=== PATIENT | male | born 1965 | race Caucasian/White ===

== ENCOUNTER 2024-10-06 12:39 | Observation (INO) ==
[2024-10-06 13:56] LABS: Albumin Globulin Ratio 1.2 (0.9-2); Albumin Level 3.9 gm/dl (3.4-5.0); BUN Creatinine Ratio 15.9 (10-20); Bilirubin,Total 0.4 mg/dl (0.2-1.0); Calcium 8.5 mg/dl (8.6-10.3); Globulin 3.2 gm/dl (2.5-4.0); Potassium 3.6 mmol/L (3.5-5.1); Total Protein 7.1 gm/dl (6.0-8.3)
[2024-10-06 14:02] LABS: Troponin I High Sensitivity 5.8 pg/ml (0-20)
[2024-10-06 14:05] LABS: Partial Thromboplastin Ratio 1.2; Partial Thromboplastin Time 33 Seconds (21-31); Prothrombin Time 10.7 Seconds (9.0-12.0)
--- NOTE | 2024-10-06 14:07 | XRay Report ---
XR chest 1V not portable CLINICAL HISTORY: Chest pain, nonspecific COMPARISON STUDY: None FINDINGS: Heart size and pulmonary vasculature are normal. No effusion, consolidation, or pneumothora x. IMPRESSION: No acute findings. ACT 112: Negative or not required by law. Electronically signed by: Freddie Petersen M.D. 10/06/2024 2:06 PM
[2024-10-06 14:15] LABS: Mean Platelet Volume 9.4 fL (9.4-12.4); Platelet Count 176 K/uL (130-400); White Blood Count 9.41 K/ul (4.8-10.8)
--- NOTE | 2024-10-06 14:27 | Electrocardiogram Report ---
Test Reason : Blood Pressure : */* mmHG Vent. Rate : 85 BPM Atrial Rate : 85 BPM P-R Int : 156 ms QRS Dur : 90 ms QT Int : 368 ms P-R-T Axes : 49 -51 34 degrees QTcB Int : 437 ms Normal sinus rhythm Left anterior fascicular block Diffuse Minor Nonspecific T wave abnormality Abnormal ECG When compared with ECG of 06-Apr-2023 12:45, No significant change was found Confirmed by Mikey Mena ([id number]) on 10/06/2024 2:27:23 PM Referred By: Confirmed By: Mikey Mena
[2024-10-06 14:35] LABS: Basophils # (auto) 0.01 K/uL (0.00-0.20); Basophils % (auto) 0.1 %; Immature Granulocytes # (auto) 0.04 K/uL (0.01-0.20); Immature Granulocytes % (auto) 0.4 %; Lymphocytes # (auto) 1.37 K/uL (1.20-3.40); Lymphocytes % (auto) 14.6 %; Monocytes # (auto) 0.71 K/uL (0.11-0.59); Monocytes % (auto) 7.5 %; Neutrophils # (auto) 7.28 K/uL (1.40-6.50); Neutrophils % (auto) 77.4 %
[2024-10-06 14:39] LABS: Hematocrit (blood only) 36.5 % (42.0-52.0); Mean Corpuscular Hemoglobin 34.1 pg (25.0-34.0); Mean Corpuscular Hgb Conc 38.4 g/dL (32.0-36.0); RDW Coefficient of Variation 12.7 % (11.5-14.5); RDW Standard Deviation 40.7 fL (36.4-46.3); Toxic Vacuolation 2+
[2024-10-06] MEDS: ALBUT/IPRATROP 3MG/0.5MG NEB 3 ML VIAL NEB STA ×2 (14:56→17:16)
[2024-10-06] MEDS: OPTIRAY 320 125ml IV ONE (15:31)
--- NOTE | 2024-10-06 15:54 | CT Scan Report ---
CT cervical spine wo con CT DOSE: 1974.12 mGy.cm CLINICAL HISTORY: 58 years-old Male with fall. Acute neck injury status post fall COMPARISON: Head CT of same day, chest CT 04/15/2023 TECHNIQUE: Multiple axial CT images of the cervic al spine were obtained without contrast. A dose lowering technique was utilized adhering to the prin ciples of MELINA. FINDINGS: Mild multilevel intervertebral disc space narrowing, spondylitic spurring and facet arthros is. No acute fracture, subluxation or suspicious bone lesion. The cervical soft tissues appear unrema rkable. No pneumothorax. Subpleural groundglass densities within the left lung apex favor atelectasi s versus scarring. Right mastoid effusion. IMPRESSION: No acute cervical spine fracture or subluxation. ACT 112: Negative or not required by law. The above report was generated using voice recognition software. It may contain grammatical, syntax o r spelling errors. Electronically signed by: Ozzie Andrew M.D. 10/06/2024 3:53 PM
--- NOTE | 2024-10-06 15:54 | CT Scan Report ---
CT angio chest PE protocol HISTORY: ro PE. TECHNIQUE: Multiple CTA images of the chest were obtained after the intravenous administration of 115 ml Optiray. Coronal and sagittal MIPS were obtained from the axial data set and were submitted for review. All measurements were obtained according to NASCET criteria. A dose lowering technique was u tilized adhering to the principles of ALARA. COMPARISON STUDY: 04/15/2023 FINDINGS: There is interval mild patchy groundglass opacity at the anterior upper lobes and at the po sterior left lung base consistent with early pneumonia. No lobar consolidation, pleural effusion, or pneumothorax. No enlarged adenopathy. No pericardial effusion. No thoracic aortic dissection or aneur ysm. There is mild noncalcified plaque at the aortic arch. No pulmonary embolism. No acute osseous fi ndings. IMPRESSION: 1. No pulmonary embolism seen. 2. Early pneumonia. ACT 112: Negative or not required by law. The above report was generated using voice recognition software. It may contain grammatical, syntax o r spelling errors. Electronically signed by: Freddie Petersen M.D. 10/06/2024 3:52 PM
--- NOTE | 2024-10-06 15:54 | CT Scan Report ---
CT OF THE HEAD WITHOUT CONTRAST CLINICAL HISTORY: Headache. Syncope. COMPARISON STUDY: No previous studies for comparison. TECHNIQUE: Helical axial images of the head were obtained without IV contrast. Automated exposure con trol was utilized for the study. A dose lowering technique was utilized adhering to the principles o f ALARA. FINDINGS: No acute intracranial hemorrhage, midline shift or mass effect is present. The ventricular system is unremarkable. The basal cisterns are patent. No extra-axial collections are present. There are no findings to suggest acute dural sinus thrombosis or acute territorial infarct. There are no ca lvarial fractures. There are small bilateral mastoid effusions. IMPRESSION: 1. No acute intracranial findings. 2. No calvarial fractures. 3. Small bilateral mastoid effusions. ACT 112: Negative or not required by law. Electronically signed by: Jc Strong M.D. 10/06/2024 3:52 PM
[2024-10-06] MEDS: cefTRIAXone SODIUM 2,000 MG/50 ML BAG IV STA (17:08)
[2024-10-06] MEDS: AZITHROMYCIN 250 MG TAB PO ONE (17:08)
[2024-10-06] MEDS: methylPREDNISolone 125 MG/2 ML VIAL IV STA (17:08)
--- NOTE | 2024-10-06 17:33 | History & Physical Report ---
Date of Service October 06, 2024 Assessment & Plan (1) Bilateral pneumonia: Plan: Acute - Observation to med/tele - VS per unit protocol - Regular diet - Monitor spO2, apply O2 if <90% - Treat for CAP as most recent CD4 count >200, repeat pending - Continue azithromycin 500mg daily and ceftriaxone 2g IV q24 - Duonebs QIDR and q2 prn dyspnea/wheezing - Continue methylprednisolone 40mg IV TID - Mucinex 600mg BID - Sputum culture and gram stain ordered (2) Syncopal episodes: Plan: Acute, 2 episodes on 10/05 - Obtain TTE and set of orthostatic vital signs - Carotid duplex bilaterally - Continuous cardiac monitoring - May benefit from holter on d/c (3) Depression with anxiety: Plan: Chronic - Continue venlafaxine, seroquel, and lamictal - pt does note that he "took himself off" of the venlafaxine which may account for his tremulousness - continue gabapentin (4) HIV (human immunodeficiency virus infection): Plan: Chronic, undetectable x 14 yrs - Continue Biktarvy - Repeat CD4 count pending (5) COPD exacerbation: Plan VTE ppx with lovenox 40mg sq daily to start tomorrow AM. Above plan of care has been d/w Dr. oFx who will also see and evaluate this patient. Further orders will be implemented as clinically warranted by attending. History of Present Illness Chief Complaint: Syncope Primary Care Provider: [facility] Norman Enrique is a 58 yo M with a pmhx of COPD, HIV w/ most recent CD4 count of 222, HLD, hepatitis B, HLD, PE, depression, methamphetamine use disorder, and anxiety and panic disorder who presents to the ER today following syncopal event x 2 that occurred at home yesterday. His first event occurred when he was outside sitting on his swing. He denies any recent use of substances, including methamphetamine since Apr 2024. He states that he stood up to walk into the house when he passed out. He does endorse feeling lightheaded before going down. He had a second episode while standing inside that was witnessed by his significant other with whom he lives. He reports that this occurred about 4 years ago but never had it investigated. His partner denies any visible jerking or shaking. He has no prior h/o seizures. He also endorses increased dyspnea, cough and congestion since Wednesday. He denies fever but reports chills. He had one episode of chest pain on Wednesday of last week while vaping, and no further episodes since that time. In the ER, his work up is notable for a CTA chest with early pna in the left lung base and anterior of both upper lobes. He is afebrile and not hypoxic. His HS trop was 5.8. He has a normal wbc count w/o shift. His Na is 129. He was medicated in the ER with a dose of Zithromax and Rocephin. He also received a dose of methylprednisolone 125mg IV x1 and two duonebs. He has been referred for admission to hospital medicine team. Allergies Allergy/AdvReac Type Severity Reaction Status Date / Time No Known Drug Allergies Allergy Verified 10/06/24 17:36 Home Medications Medication Instructions Recorded Confirmed Type venlafaxine 150 mg 150 mg PO BID 3 weeks #42 caps 01/01/23 10/06/24 Rx capsule,extended release 24 hr bictegravir 50 mg-emtricitabine 1 tab PO QAM 03/30/23 10/06/24 History 200 mg-tenofovir alafenam 25 mg tablet (Biktarvy) gabapentin 800 mg tablet 800 mg PO TID #270 tabs 09/25/24 10/06/24 Rx lamotrigine 100 mg tablet 100 mg PO QAM 10/06/24 10/06/24 History meloxicam 15 mg tablet 15 mg PO QAM 10/06/24 10/06/24 History quetiapine 300 mg tablet 300 mg PO HS 10/06/24 10/06/24 History Past Med/Surg History Problem List (Updated 10/06/24 @ 21:57 by Zachariah Fox MD) COPD exacerbation Syncopal episodes Bilateral pneumonia Low testosterone History of colon polyps Nocturnal enuresis Erectile dysfunction Umbilical hernia Panic disorder Depression with anxiety Hepatitis B Cigarette nicotine dependence Cannabis abuse, daily use medical marijuana daily 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 Left knee pain History of pulmonary embolism Approximately 2009 (r/t IV drug use) Joint pain COPD (chronic obstructive pulmonary disease) does not use inhaler Hyperlipidemia HIV (human immunodeficiency virus infection) "undetectable for 14 years" Medical History (Updated 10/06/24 @ 21:57 by Zachariah oFx MD) History of drug use sober since 10/2022 for all drugs except IV drugs; last use of IV drugs 2021 Arthritis Medical cannabis use "all day every day" Hepatitis B Depression with anxiety Panic disorder History of DVT (deep vein thrombosis) Approximately 2009 Surgical History (Updated 12/17/23 @ 12:55 by Natacha Deng PA-C) H/O umbilical hernia repair (04/08/23) Open Umbilical Hernia Repair(Not Applicable) - [facility] Edwards, History of colonoscopy H/O tooth extraction all teeth removed Family History Other No family history of adverse response to anesthesia Denies family history of Ovarian cancer Prostate cancer Myocardial infarction Breast cancer Colorectal cancer Social History Smoking Status: Never smoker Tobacco Type: Cigarettes Age Started Using Tobacco: 16; packs per day: 0.5; Cigarettes Per Day: 20; Second Hand Exposure: No; Do You Dip or Chew Tobacco: Yes (hx-quit 30 years ago; advised); Hx Alcohol Use: Yes (quit 2017) Hx Substance Use: Yes (still uses medical marijuana "all day every day") Prescribed Medications: Marijuana Last Used Substance: Unknown Last Used Substance Other:: sober since 10/2022; IV drugs-2021 Substance Use Type Other:: currently uses medical marijuana daily Preferred Language: Malay Communication Ability: Effective Visual Impairment: Limited Hearing Ability: Normal Salt Operator Required: No Beliefs That Will Affect Care: None marital status: Current Living Situation: Spouse Current Living Situation Comment: lives with GF current occupational status: disabled Feels Safe at Home: Yes Childhood Exposure to Second-Hand Smoke: Yes Diet: regular Diet Comment: regular caffeine: Yes (coffeee) during the past year weight has: remained stable Dental Care, Regularly: Yes Physical Activity Frequency: Daily Seatbelt Use: always Sunscreen Use: Yes Gender Identity: Male Assistive Devices: Denture - Upper, Denture - Lower and Glasses Review of Systems 2 Review of Systems: All systems reviewed and are unremarkable except as noted in HPI and below. Denies fever, fatigue, headache, nasal congestion, sore throat, palpitations, orthopnea, PND, abdominal pain, n/v/d, constipation, dysuria, hematuria, frequency, back pain, joint pain or swelling, easy bruising or bleeding, skin lesions or rashes. Physical Exam 2 Physical Exam: GENERAL: 58 yo middle aged wm who appears older than stated age. Thin. No distress. EYES: EOMI. PERRLA. Anicteric. HENT: Moist mucous membranes. No cervical lymphadenopathy. LUNGS: Nonlabored, no accessory muscle use. Rhonchi and moderate expiratory wheezes appreciated b/l. CARDIOVASCULAR: Regular rate and rhythm. No M/G/R. No JVD. ABDOMEN: Soft, non-tender and non-distended. Bowel sounds normoactive x 4 quad. EXTREMITIES: No edema. Non-tender. Peripheral pulses +2/4. NEUROLOGIC: A&O x3. Tremulous. No focal neurological deficits. CN II-XII grossly intact. PSYCHIATRIC: Cooperative. Appropriate mood and affect. SKIN: Warm, dry, intact. No rashes or lesions. Results & Data Results & Data Vital Signs (Past 12 Hours) Vital Signs Temp Pulse Pulse Resp BP BP Pulse Ox 10/06/24 14:36 99 10/06/24 14:34 71 20 119/79 99 10/06/24 14:34 99 10/06/24 12:52 36.7 C 91 H 19 123/69 96 O2 Del Method 10/06/24 14:36 Room Air 10/06/24 14:34 Room Air 10/06/24 14:34 Room Air 10/06/24 12:52 Room Air Laboratory Results 10/06/24 13:10 10/06/24 13:10 Diagnostic Findings Chest X-Ray 10/06/24 12:58 XR chest 1V not portable CLINICAL HISTORY: Chest pain, nonspecific COMPARISON STUDY: None FINDINGS: Heart size and pulmonary vasculature are normal. No effusion, consolidation, or pneumothorax. IMPRESSION: No acute findings. ACT 112: Negative or not required by law. Electronically signed by: Freddie Petersen M.D. 10/06/2024 2:06 PM Chest CTA 10/06/24 14:52 CT angio chest PE protocol HISTORY: ro PE. TECHNIQUE: Multiple CTA images of the chest were obtained after the intravenous administration of 115 ml Optiray. Coronal and sagittal MIPS were obtained from the axial data set and were submitted for review. All measurements were obtained according to NASCET criteria. A dose lowering technique was utilized adhering to the principles of ALARA. COMPARISON STUDY: 04/15/2023 FINDINGS: There is interval mild patchy groundglass opacity at the anterior upper lobes and at the posterior left lung base consistent with early pneumonia. No lobar consolidation, pleural effusion, or pneumothorax. No enlarged adenopathy. No pericardial effusion. No thoracic aortic dissection or aneurysm. There is mild noncalcified plaque at the aortic arch. No pulmonary embolism. No acute osseous findings. IMPRESSION: 1. No pulmonary embolism seen. 2. Early pneumonia. ACT 112: Negative or not required by law. The above report was generated using voice recognition software. It may contain grammatical, syntax or spelling errors. Electronically signed by: Freddie Petersen M.D. 10/06/2024 3:[address] 10/06/24 14:52 CT OF THE HEAD WITHOUT CONTRAST CLINICAL HISTORY: Headache. Syncope. COMPARISON STUDY: No previous studies for comparison. TECHNIQUE: Helical axial images of the head were obtained without IV contrast. Automated exposure control was utilized for the study. A dose lowering technique was utilized adhering to the principles of ALARA. FINDINGS: No acute intracranial hemorrhage, midline shift or mass effect is present. The ventricular system is unremarkable. The basal cisterns are patent. No extra-axial collections are present. There are no findings to suggest acute dural sinus thrombosis or acute territorial infarct. There are no calvarial fractures. There are small bilateral mastoid effusions. IMPRESSION: 1. No acute intracranial findings. 2. No calvarial fractures. 3. Small bilateral mastoid effusions. ACT 112: Negative or not required by law. Electronically signed by: Jc Strong M.D. 10/06/2024 3:[address] 10/06/24 14:54 CT cervical spine wo con CT DOSE: 1974.12 mGy.cm CLINICAL HISTORY: 58 years-old Male with fall. Acute neck injury status post fall COMPARISON: Head CT of same day, chest CT 04/15/2023 TECHNIQUE: Multiple axial CT images of the cervical spine were obtained without contrast. A dose lowering technique was utilized adhering to the principles of ALARA. FINDINGS: Mild multilevel intervertebral disc space narrowing, spondylitic spurring and facet arthrosis. No acute fracture, subluxation or suspicious bone lesion. The cervical soft tissues appear unremarkable. No pneumothorax. Subpleural groundglass densities within the left lung apex favor atelectasis versus scarring. Right mastoid effusion. IMPRESSION: No acute cervical spine fracture or subluxation. ACT 112: Negative or not required by law. The above report was generated using voice recognition software. It may contain grammatical, syntax or spelling errors. Electronically signed by: Ozzie Andrew M.D. 10/06/2024 3:53 PM ECG Additional Comments: EKG = NSR Code Status & VTE Plan Code Status Full code - d/w pt and significant other Supervising Physician Co-Signing Physician Notes I personally saw and examined the patient. I independently reviewed the labs, EKG, imaging, problem list, medication list, past medical history and family history. I verified all garsia points and agree with Clotilde Saini PA-C with the following exceptions and/or additions: 58 year old male presents to the ER following a syncopal event. Shortness of breath worse over the last week. O/E HS RRR, no murmurs, Chest rhonchi bilaterally, no wheezing, Abdo SNT, no pedal edema A/P Pneumonia - Presuming CD4 count > 200 as historically this has been the case therefore will cover for usual CAP with ceftriaxone and azithromycin COPD exacerbation - wheezing noted on initial PA and ER provider exam although currently just rhonchi on my exam and no significant improvement with nebulizers. Will reduce Solu-Medrol to 40mg IV daily but suspect this can be rapidly discontinued if he remains non-wheezy Syncope - Suspect secondary to pneumonia, TTE appears reasonable PG Care Time/CCT Total # of Minutes Spent Total Time Spent with Patient: Total time spent is greater than 50% in coordination of care (as documented) at patient's floor/unit and/or counseling patient: 76 minutes Coding Level of Care Code 25198 INT INP/OBS CARE 3/75MIN Diagnoses Pneumonia of both lungs due to infectious organism, unspecified part of lung J18.9 Lung location: unspecified part of lung Pneumonia type: due to unspecified organism Syncope, unspecified syncope type R55 Syncope type: unspecified Depression with anxiety F41.8 HIV (human immunodeficiency virus infection) B20 COPD exacerbation J44.1 (1) Bilateral pneumonia Lung location: unspecified part of lung Pneumonia type: due to unspecified organism Qualified Code(s): J18.9 - Pneumonia, unspecified organism (2) Syncopal episodes Syncope type: unspecified Qualified Code(s): R55 - Syncope and collapse
[2024-10-06 18:35] LABS: Adenovirus PCR Not Detected (NotDetected); Bordetella parapertussis PCR Not Detected (NotDetected); Bordetella pertussis PCR Not Detected (NotDetected); Chlamydia pneumoniae PCR Not Detected (NotDetected); Coronavirus 229E PCR Not Detected (NotDetected); Coronavirus CoV-2 (COVID19)PCR Not Detected (NotDetected); Coronavirus HKU1 PCR Not Detected (NotDetected); Coronavirus NL63 PCR Not Detected (NotDetected); Coronavirus OC43PCR Not Detected (NotDetected); Human Metapneumovirus PCR Not Detected (NotDetected); Influenza A PCR Not Detected (NotDetected); Influenza B PCR Not Detected (NotDetected); Mycoplasma pneumoniae PCR Not Detected (NotDetected); Parainfluenza Virus 1 PCR Not Detected (NotDetected); Parainfluenza Virus 2 PCR Not Detected (NotDetected); Parainfluenza Virus 3 PCR Not Detected (NotDetected); Parainfluenza Virus 4 PCR Not Detected (NotDetected); Respiratory Syncytial VirusPCR Not Detected (NotDetected); Rhinovirus/Enterovirus PCR Not Detected (NotDetected)
[2024-10-06] MEDS ORDERED: MAGNESIUM HYDROXIDE SUSP 30 ML UDC PO PRN (18:53)
[2024-10-06] MEDS ORDERED: ONDANSETRON INJ 2 MG/ML 2 ML VIAL IV PRN (18:53)
[2024-10-06] MEDS ORDERED: ALUMINUM/MAGNESIUM SUSP 30 ML UDC PO PRN (18:53)
[2024-10-06] MEDS: ACETAMINOPHEN 325 MG TAB PO PRN (19:55)
[2024-10-06] MEDS: ALBUT/IPRATROP 3MG/0.5MG NEB 3 ML VIAL NEB SCH (20:04)
[2024-10-06] MEDS: LORazepam 1 MG TAB PO STA (20:16)
[2024-10-06] MEDS: guaiFENesin 600 MG TABCR PO SCH (20:19)
[2024-10-06] MEDS: VENLAFAXINE HCL XR 150 MG CAPXR PO SCH (20:19)
[2024-10-06] MEDS: GABAPENTIN 800 MG TAB PO SCH (20:19)
[2024-10-06] MEDS: QUEtiapine FUMARATE 300 MG TABLET PO SCH (20:19)
--- NOTE | 2024-10-06 22:17 | Emergency Department Note ---
History of Present Illness General Chief complaint: Syncope Stated complaint: BLACKING OUT, TIGHT CHEST, MUSCLE PAIN Time Seen by Provider: 10/06/24 14:40 History of Present Illness Provider complaint: Syncope Maximum Pain Intensity: 8 58-year-old male with history of COPD who actively smokes, HIV, presents emergency department for syncope. Patient states earlier today he had a syncopal episode. He states he is not sure how but passed out earlier today. He states he has been having chest pain for the last week. Reports some shortness of breath. He reports wheezing. Reports chronic cough. No hemoptysis. Patient is not on any blood thinners. Patient states he has taken his Biktarvy but he states he is not sure what his CD4 count or his viral load are as he has not gone to his doctor recently. Home Medications Medication Instructions Recorded Confirmed Type venlafaxine 150 mg 150 mg PO BID 3 weeks #42 caps 01/01/23 10/06/24 Rx capsule,extended release 24 hr bictegravir 50 mg-emtricitabine 1 tab PO QAM 03/30/23 10/06/24 History 200 mg-tenofovir alafenam 25 mg tablet (Biktarvy) gabapentin 800 mg tablet 800 mg PO TID #270 tabs 09/25/24 10/06/24 Rx lamotrigine 100 mg tablet 100 mg PO QAM 10/06/24 10/06/24 History meloxicam 15 mg tablet 15 mg PO QAM 10/06/24 10/06/24 History quetiapine 300 mg tablet 300 mg PO HS 10/06/24 10/06/24 History Allergies Allergy/AdvReac Type Severity Reaction Status Date / Time No Known Drug Allergies Allergy Verified 10/06/24 17:36 Past Med/Surg History Problem List (Updated 10/06/24 @ 22:30 by Yang Gonzales MD) Syncope (Acute) Pneumonia (Acute) COPD exacerbation Syncopal episodes Bilateral pneumonia Low testosterone History of colon polyps Nocturnal enuresis Erectile dysfunction Umbilical hernia Panic disorder Depression with anxiety Hepatitis B Cigarette nicotine dependence Cannabis abuse, daily use medical marijuana daily 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 Left knee pain History of pulmonary embolism Approximately 2009 (r/t IV drug use) Joint pain COPD (chronic obstructive pulmonary disease) does not use inhaler Hyperlipidemia HIV (human immunodeficiency virus infection) (Acute) "undetectable for 14 years" Medical History History of drug use sober since 10/2022 for all drugs except IV drugs; last use of IV drugs 2021 Arthritis Medical cannabis use "all day every day" Hepatitis B Depression with anxiety Panic disorder History of DVT (deep vein thrombosis) Approximately 2009 Surgical History H/O umbilical hernia repair (04/08/23) Open Umbilical Hernia Repair(Not Applicable) - José Manuel Edwards DO History of colonoscopy H/O tooth extraction all teeth removed Family History Other No family history of adverse response to anesthesia Denies family history of Ovarian cancer Prostate cancer Myocardial infarction Breast cancer Colorectal cancer Social History Smoking Status: Never smoker Tobacco Type: Cigarettes Age Started Using Tobacco: 16; packs per day: 0.5; Cigarettes Per Day: 20; Second Hand Exposure: No; Do You Dip or Chew Tobacco: Yes (hx-quit 30 years ago; advised); Hx Alcohol Use: Yes (quit 2017) Hx Substance Use: Yes (still uses medical marijuana "all day every day") Prescribed Medications: Marijuana Last Used Substance: Unknown Last Used Substance Other:: sober since 10/2022; IV drugs-2021 Substance Use Type Other:: currently uses medical marijuana daily Preferred Language: Palauan Communication Ability: Effective Visual Impairment: Limited Hearing Ability: Normal Jacquard Loom Weaver Required: No Beliefs That Will Affect Care: None marital status: Current Living Situation: Spouse Current Living Situation Comment: lives with GF current occupational status: disabled Feels Safe at Home: Yes Childhood Exposure to Second-Hand Smoke: Yes Diet: regular Diet Comment: regular caffeine: Yes (coffeee) during the past year weight has: remained stable Dental Care, Regularly: Yes Physical Activity Frequency: Daily Seatbelt Use: always Sunscreen Use: Yes Gender Identity: Male Assistive Devices: Denture - Upper, Denture - Lower and Glasses Physical Exam Vital Signs Vital Signs - 24 hr 10/06/24 12:52 10/06/24 14:34 10/06/24 14:34 Temperature 36.7 C Temperature Source Temporal Artery Scan Pulse Rate 91 H Pulse Rate [Apical] 71 Pulse Rhythm [Apical] Pulse Strength [Apical] Respiratory Rate 19 20 Respiratory Effort / Characteristics Non-Labored Spontaneous Non-Labored Spontaneous Respiratory Depth Normal Normal Respiratory Pattern Regular Regular Blood Pressure 123/69 Blood Pressure [Left Arm] 119/79 Blood Pressure Mean 87 Blood Pressure Mean [Left Arm] 92 Blood Pressure Position [Left Arm] Pulse Oximetry 96 99 99 Oxygen Delivery Method Room Air Room Air Room Air Sepsis Recent Fever Within 48 Hours No Sepsis New/Unexplained Change in Mental Status No Sepsis Action Taken by Nursing No Action Required 10/06/24 14:36 10/06/24 16:00 Temperature Temperature Source Pulse Rate Pulse Rate [Apical] 78 Pulse Rhythm [Apical] Regular Pulse Strength [Apical] Normal Respiratory Rate 25 H Respiratory Effort / Characteristics Non-Labored Respiratory Depth Normal Respiratory Pattern Regular Blood Pressure Blood Pressure [Left Arm] 119/79 Blood Pressure Mean Blood Pressure Mean [Left Arm] 92 Blood Pressure Position [Left Arm] Lying Pulse Oximetry 99 100 Oxygen Delivery Method Room Air Room Air Sepsis Recent Fever Within 48 Hours Sepsis New/Unexplained Change in Mental Status Sepsis Action Taken by Nursing Physical Exam GENERAL: He is oriented to person, place, and time. He appears well-developed and well-nourished. He does not appear distressed. HENT: Exam performed. - Head: Normocephalic and atraumatic. - Right Ear: External ear normal. No mastoid erythema - Left Ear: External ear normal. No mastoid erythema - Mouth/Throat: The oropharynx is clear and moist. No trismus in the jaw. No dental abscesses or uvula swelling. No oropharyngeal exudate or tonsillar abscesses. EYES: Conjunctivae and EOM are normal. Pupils are equal, round, and reactive to light. Right eye exhibits no discharge. Left eye exhibits no discharge. No scleral icterus. NECK: Normal range of motion. Neck supple. No JVD present. CV: Normal rate, regular rhythm, normal heart sounds and intact distal pulses. There is no peripheral edema. Palpable radial pulses bue. PULM/CHEST: Wheezes bilaterally. ABD: The abdomen is soft.He has no distension. No mass is present. There is no tenderness. There is no rebound, no guarding, no Danielson's sign and no tenderness at McBurney's point. Rovsig negative. MUSC/SKEL: Normal range of motion. There is no peripheral edema, tenderness or deformity. LYMPH: No cervical adenopathy. NEURO: He is alert and oriented to person, place, and time. He has normal strength. No cranial nerve deficit or sensory deficit. Coordination and gait normal. GCS eye subscore is 4. GCS verbal subscore is 5. GCS motor subscore is 6. Cerebellar tests wnl. SKIN: Skin is warm and dry. He is not diaphoretic. PSYCH: He has a normal mood and affect. Behavior is normal. Judgment and thought content normal. Course Course 1440: The patient was evaluated in room B3. A complete history and physical exam was performed Cardiac monitoring: An order was placed for continuous cardiac monitoring. The monitor shows a rate of 80 with sinus rhythm interpreted by va 1645: Vital signs stable. Patient still wheezing. Patient be given repeat DuoNeb treatment. Labs are unremarkable. Imaging shows possible developing pneumonia. External medical records were reviewed. According to scan lab reports from May 02, 2024 the patient's CD4 count was 222. Given this low CD4 count, will recheck the patient's CD4 count today. Unfortunately this is a send out test. Blood cultures and lactic acid will be ordered for the patient. Rocephin and azithromycin will be ordered for the patient. Since patient CD4 count is not less than 200 will hold off on Bactrim. 1710: Vital signs stable. Wheezing improved status post second DuoNeb treatment. Still wheezing though. Lactic acid within normal limits. Patient will be admitted to the [facility] team. Administered Medications Acetaminophen (Acetaminophen 325 Mg Tab) 650 mg PO Q4H PRN PRN Reason: Pain or Fever Stop: 11/05/24 18:52 Last Admin: 10/06/24 19:55 Dose: 650 mg Documented By: JASIEL Albuterol (Albut/Ipratrop 3mg/0.5mg Neb 3 Ml Vial) 3 ml NEB QIDR TREV; Protocol Stop: 11/05/24 18:59 Last Admin: 10/06/24 20:04 Dose: 3 ml Documented By: MARITA Gabapentin (Gabapentin 800 Mg Tab) 800 mg PO TID [facility] Stop: 11/05/24 20:59 Last Admin: 10/06/24 20:19 Dose: 800 mg Documented By: JASIEL Guaifenesin (Guaifenesin 600 Mg Tabcr) 600 mg PO Q12 TREV Stop: 11/05/24 20:59 Last Admin: 10/06/24 20:19 Dose: 600 mg Documented By: JASIEL Quetiapine Fumarate (Quetiapine Fumarate 300 Mg Tablet) 300 mg PO HS TREV Stop: 11/05/24 20:59 Last Admin: 10/06/24 20:19 Dose: 300 mg Documented By: JASIEL Venlafaxine HCl (Venlafaxine Hcl Xr 150 Mg Capxr) 150 mg PO BID TREV Stop: 11/05/24 20:59 Last Admin: 10/06/24 20:19 Dose: 150 mg Documented By: JASIEL Discontinued Medications Albuterol (Albut/Ipratrop 3mg/0.5mg Neb 3 Ml Vial) 3 ml NEB NOW STA; Protocol Stop: 10/06/24 14:53 Last Admin: 10/06/24 14:56 Dose: 3 ml Documented By: CHARLES Albuterol (Albut/Ipratrop 3mg/0.5mg Neb 3 Ml Vial) 3 ml NEB NOW STA; Protocol Stop: 10/06/24 16:31 Last Admin: 10/06/24 17:16 Dose: 3 ml Documented By: PACO Azithromycin (Azithromycin 250 Mg Tab) 500 mg PO NOW ONE Stop: 10/06/24 16:31 Last Admin: 10/06/24 17:08 Dose: 500 mg Documented By: PACO Ceftriaxone Sodium (Rocephin) 2,000 mg in 50 mls @ 100 mls/hr IV NOW STA Stop: 10/06/24 16:59 Last Infusion: 10/06/24 18:11 Dose: Infused Documented By: Admin: 10/06/24 17:08 Dose: 100 mls/hr Documented By: PACO Ioversol (Optiray 320 125ml) 115 ml IV ONCE ONE Stop: 10/06/24 15:32 Last Admin: 10/06/24 15:31 Dose: 115 ml Documented By: ALBERT Lorazepam (Lorazepam 1 Mg Tab) 1 mg PO NOW STA Stop: 10/06/24 19:49 Last Admin: 10/06/24 20:16 Dose: 1 mg Documented By: JASIEL Methylprednisolone (Methylprednisolone 125 Mg/2 Ml Vial) 125 mg IV NOW STA Stop: 10/06/24 16:35 Last Admin: 10/06/24 17:08 Dose: 125 mg Documented By: PACO Medical Decision Making Laboratory Data Attestation: I reviewed the patient's lab results. 10/06/24 13:10 10/06/24 13:10 Lab Results 10/06/24 10/06/24 10/06/24 Range/Units 13:10 16:43 17:18 WBC 9.41 (4.8-10.8) K/ul RBC 4.10 L (4.70-6.10) M/uL Hgb 14.0 (14.0-18.0) g/dl Hct 36.5 L (42.0-52.0) % MCV 89.0 (80.0-100.0) fL MCH 34.1 H (25.0-34.0) pg MCHC 38.4 H (32.0-36.0) g/dL RDW Std Deviation 40.7 (36.4-46.3) fL RDW Coeff of Lia 12.7 (11.5-14.5) % Plt Count 176 (130-400) K/uL MPV 9.4 (9.4-12.4) fL Immature Gran % (Auto) 0.4 % Neut % (Auto) 77.4 % Lymph % (Auto) 14.6 % Dade % (Auto) 7.5 % Eos % (Auto) 0.0 % Baso % (Auto) 0.1 % Neut # (Auto) 7.28 H (1.40-6.50) K/uL Lymph # (Auto) 1.37 (1.20-3.40) K/uL Dade # (Auto) 0.71 H (0.11-0.59) K/uL Eos # (Auto) 0.00 (0.00-0.50) K/uL Baso # (Auto) 0.01 (0.00-0.20) K/uL Immature Gran # (Auto) 0.04 (0.01-0.20) K/uL Toxic Vacuolation 2+ PT 10.7 (9.0-12.0) Seconds INR 1.0 (0.9-1.1) APTT 33 H (21-31) Seconds PTT Ratio 1.2 Sodium 129 L (136-145) mmol/L Potassium 3.6 (3.5-5.1) mmol/L Chloride 99 (98-107) mmol/L Carbon Dioxide 21 (21-32) mmol/L Anion Gap 9 (3-11) BUN 20 (6-23) mg/dl Creatinine 1.26 (0.6-1.4) mg/dl Est Cr Clr Drug Dosing 66.0 ml/min eGFR 66.11 BUN/Creatinine Ratio 15.9 (10-20) Glucose 113 H (70-99(Fasting)) mg/dl Lactate 1.7 (0.4-2.0) mmol/L Calcium 8.5 L (8.6-10.3) mg/dl Total Bilirubin 0.4 (0.2-1.0) mg/dl AST 28 (13-39) U/L ALT 36 (7-52) U/L Alkaline Phosphatase 53 (34-104) U/L Troponin I High Sens 5.8 (0-20) pg/ml Total Protein 7.1 (6.0-8.3) gm/dl Albumin 3.9 (3.4-5.0) gm/dl Globulin 3.2 (2.5-4.0) gm/dl Albumin/Globulin Ratio 1.2 (0.9-2) Adenovirus (PCR) Not Detected (NotDetected) B. pertussis DNA (PCR) Not Detected (NotDetected) B.parapertussis DNA PCR Not Detected (NotDetected) C. pneumoniae DNA (PCR) Not Detected (NotDetected) Coronavirus OC43 (PCR) Not Detected (NotDetected) Coronavirus HKU1 (PCR) Not Detected (NotDetected) Coronavirus 229E (PCR) Not Detected (NotDetected) SARS-CoV-2 (PCR) Not Detected (NotDetected) Coronavirus NL63 (PCR) Not Detected (NotDetected) Human Metapneumovir PCR Not Detected (NotDetected) Influenza Type A (PCR) Not Detected (NotDetected) Influenza Type B (PCR) Not Detected (NotDetected) M. pneumoniae (PCR) Not Detected (NotDetected) Parainfluenza 1 (PCR) Not Detected (NotDetected) Parainfluenza 2 (PCR) Not Detected (NotDetected) Parainfluenza 3 (PCR) Not Detected (NotDetected) Parainfluenza 4 (PCR) Not Detected (NotDetected) RSV (PCR) Not Detected (NotDetected) Entero/Rhino (PCR) Not Detected (NotDetected) Imaging Data Attestation: I personally reviewed and interpreted this imaging study as follows: My Impression: Chest x-ray negative. Airway clear. No pneumothorax. No consolidation. No cardiomegaly or cephalization.. No free air under the diaphragm. No fractures of the skeletal structures. Radiologist's Impression: Chest X-Ray 10/06/24 12:58 XR chest 1V not portable CLINICAL HISTORY: Chest pain, nonspecific COMPARISON STUDY: None FINDINGS: Heart size and pulmonary vasculature are normal. No effusion, consolidation, or pneumothorax. IMPRESSION: No acute findings. ACT 112: Negative or not required by law. Electronically signed by: Freddie Petersen M.D. 10/06/2024 2:06 PM Chest CTA 10/06/24 14:52 CT angio chest PE protocol HISTORY: ro PE. TECHNIQUE: Multiple CTA images of the chest were obtained after the intravenous administration of 115 ml Optiray. Coronal and sagittal MIPS were obtained from the axial data set and were submitted for review. All measurements were obtained according to NASCET criteria. A dose lowering technique was utilized adhering to the principles of ALARA. COMPARISON STUDY: 04/15/2023 FINDINGS: There is interval mild patchy groundglass opacity at the anterior upper lobes and at the posterior left lung base consistent with early pneumonia. No lobar consolidation, pleural effusion, or pneumothorax. No enlarged adenopathy. No pericardial effusion. No thoracic aortic dissection or aneurysm. There is mild noncalcified plaque at the aortic arch. No pulmonary embolism. No acute osseous findings. IMPRESSION: 1. No pulmonary embolism seen. 2. Early pneumonia. ACT 112: Negative or not required by law. The above report was generated using voice recognition software. It may contain grammatical, syntax or spelling errors. Electronically signed by: Freddie Petersen M.D. 10/06/2024 3:[address] 10/06/24 14:52 CT OF THE HEAD WITHOUT CONTRAST CLINICAL HISTORY: Headache. Syncope. COMPARISON STUDY: No previous studies for comparison. TECHNIQUE: Helical axial images of the head were obtained without IV contrast. Automated exposure control was utilized for the study. A dose lowering technique was utilized adhering to the principles of ALARA. FINDINGS: No acute intracranial hemorrhage, midline shift or mass effect is present. The ventricular system is unremarkable. The basal cisterns are patent. No extra-axial collections are present. There are no findings to suggest acute dural sinus thrombosis or acute territorial infarct. There are no calvarial fractures. There are small bilateral mastoid effusions. IMPRESSION: 1. No acute intracranial findings. 2. No calvarial fractures. 3. Small bilateral mastoid effusions. ACT 112: Negative or not required by law. Electronically signed by: Jc Strong M.D. 10/06/2024 3:[address] 10/06/24 14:54 CT cervical spine wo con CT DOSE: 1974.12 mGy.cm CLINICAL HISTORY: 58 years-old Male with fall. Acute neck injury status post fall COMPARISON: Head CT of same day, chest CT 04/15/2023 TECHNIQUE: Multiple axial CT images of the cervical spine were obtained without contrast. A dose lowering technique was utilized adhering to the principles of ALARA. FINDINGS: Mild multilevel intervertebral disc space narrowing, spondylitic spurring and facet arthrosis. No acute fracture, subluxation or suspicious bone lesion. The cervical soft tissues appear unremarkable. No pneumothorax. Subpleural groundglass densities within the left lung apex favor atelectasis versus scarring. Right mastoid effusion. IMPRESSION: No acute cervical spine fracture or subluxation. ACT 112: Negative or not required by law. The above report was generated using voice recognition software. It may contain grammatical, syntax or spelling errors. Electronically signed by: Ozzie Andrew M.D. 10/06/2024 3:53 PM ECG Data Attestation: I personally reviewed and interpreted this ECG as follows: Rate (beats per minute): 85 Rhythm: + normal sinus ECG Intervals/blocks: + Normal QRS, + Normal [place] and + Normal QT-c ECG ST segments: + Normal ST segments [facility] Narrative 1440: The patient was evaluated in room B3. A complete history and physical exam was performed Cardiac monitoring: An order was placed for continuous cardiac monitoring. The monitor shows a rate of 80 with sinus rhythm interpreted by va 1645: Vital signs stable. Patient still wheezing. Patient be given repeat DuoNeb treatment. Labs are unremarkable. Imaging shows possible developing pneumonia. External medical records were reviewed. According to scan lab reports from May 02, 2024 the patient's CD4 count was 222. Given this low CD4 count, will recheck the patient's CD4 count today. Unfortunately this is a send out test. Blood cultures and lactic acid will be ordered for the patient. Rocephin and azithromycin will be ordered for the patient. Since patient CD4 count is not less than 200 will hold off on Bactrim. 1710: Vital signs stable. Wheezing improved status post second DuoNeb treatment. Still wheezing though. Lactic acid within normal limits. Patient will be admitted to the [facility]ist team. Impression & Plan Pneumonia, HIV (human immunodeficiency virus infection), Syncope Discharge Plan Visit Data Chief Complaint: Syncope Stated Complaint: BLACKING OUT, TIGHT CHEST, MUSCLE PAIN ED Provider: Yang Gonzales Discharge Problem: Pneumonia, HIV (human immunodeficiency virus infection), Syncope Patient Disposition: Admitted As Inpatient Discharge Instructions Interventions: ED Discharge Assessment Last Done: 10/06/24 21:36 Discharge Problem: Pneumonia Qualifiers: Pneumonia type: due to unspecified organism Laterality: bilateral
--- NOTE | 2024-10-07 07:56 | Hospitalist Progress Note ---
Date of Service October 07, 2024 Assessment & Plan (1) Bilateral pneumonia: Plan: 58 y/o man with HIV well controlled on Biktarvy and COPD came in after two syncopal episodes 10/05, found to have multifocal pneumonia - L base and bilateral upper lobe infiltrates on chest CT CAP, multifocal pneumonia Acute exacerbation of COPD, mild. presumptive COPD based on chronic cough extensive smoking history, unclear formal diagnosis has had as needed albuterol inhaler in the past but not a control inhaler -continue ceftriaxone and azithromycin (500 mg daily x 3 days) - added vancomycin because of Staphylococcus by molecular in 1 bottle of ED admission blood cultures, potentially is a contaminant. TTE without any obvious vegetations - Monitor spO2, apply O2 if <90% - Duonebs QIDR and q2 prn dyspnea/wheezing - Continue steroids for now reduce to prednisone 20 mg daily - Mucinex 600mg BID - Sputum culture and gram stain ordered moderate hyponatremia - hypovolemic - normalized from 129 up to 135 with IV fluids steroid-induced hyperglycemia - BG elevated in 200s today -reduce steroids, monitor BG (2) Syncopal episodes: Plan: Acute, 2 episodes on 10/05. With prodrome. Caused by pneumonia. - TTE reviewed with Dr. Tellez and unremarkable, normal LV EF 60-65% no RWMAs, mild concentric LVH, no significant valvular disease, normal volume status - CTA chest was negative for PE - Continuous cardiac monitoring for today - no significant arrhythmia on tele review - further workup not indicated unless recurrent syncope (3) Depression with anxiety: Plan: Chronic - Continue venlafaxine, seroquel, and lamictal - pt does note that he "took himself off" of the venlafaxine which may account for his tremulousness - continue gabapentin He appears to have myoclonic jerks - will slightly reduce gabapentin and see if it improved (4) HIV (human immunodeficiency virus infection): Plan: Chronic, undetectable x 14 yrs - Continue Biktarvy - Repeat CD4 count pending (5) COPD exacerbation: Plan Possible CKD-3 - Cr 1.26 same as 04/2024 (previously 0.9-1.2) -Cr 1.26-->1.15 after IV fluids VTE ppx with lovenox 40mg sq daily Suitable for discharge home if staph in blood culture proves to be a contaminant, remain on vancomycin until speciated Updated his at bedside Admission and Anticipated Discharge Date Admission Date: October 06, 2024 Subjective Enrique feels better, he is coughing quite a lot which he attributes to cigarettes No longer lightheaded/presyncopal No chest pain Nose is sore because he fell and hit it Physical Exam 2 Physical Exam: PHYSICAL EXAMINATION Last 24h vital signs reviewed, see documentation in flowsheet General: comfortable appearing, no distress, thin man appears older than his age HEENT: small laceration bridge of nose not bleeding, pupils round and equal, sclerae anicteric, no conjunctival injection, moist mucus membranes Lungs: Normal respiratory effort. coarse breath sounds throughout bilaterally anterior and posterior, not wheezing Heart: Regular rate and rhythm, no murmurs. No JVD Abdomen: Soft, nontender, nondistended. Bowel sounds present. Extremities: Warm, dry, well-perfused. No extremity edema. Neuro: Alert and oriented x 4, face symmetric, moves 4 extremities well Psych: Normal affect and behavior Results & Data Results & Data Vital Signs (Past 12 Hours) Vital Signs Temp Pulse Pulse Resp BP Pulse Ox O2 Del Method 10/07/24 07:33 98.1 F 79 18 110/65 93 Room Air 10/07/24 07:21 71 18 91 Room Air 10/07/24 07:00 75 10/07/24 02:49 97.3 F L 70 19 115/70 95 Room Air 10/06/24 22:30 97.7 F 77 19 106/62 97 Room Air 10/06/24 22:00 104 H 10/06/24 22:00 Room Air 10/06/24 22:00 97.7 F 99 H 22 156/68 H 93 Room Air 10/06/24 20:04 15 96 Room Air Laboratory Results 10/07/24 07:59 10/07/24 07:59 PG Care Time/CCT Total # of Minutes Spent Total Time Spent with Patient: Total time spent is greater than 50% in coordination of care (as documented) at patient's floor/unit and/or counseling patient: Coding Level of Care Code 31220 SUB INP/OBS CARE 3/50MIN Diagnoses Pneumonia of both lungs due to infectious organism, unspecified part of lung J18.9 Lung location: unspecified part of lung Pneumonia type: due to unspecified organism Syncope, unspecified syncope type R55 Syncope type: unspecified Depression with anxiety F41.8 HIV (human immunodeficiency virus infection) B20 COPD exacerbation J44.1 (1) Bilateral pneumonia Lung location: unspecified part of lung Pneumonia type: due to unspecified organism Qualified Code(s): J18.9 - Pneumonia, unspecified organism (2) Syncopal episodes Syncope type: unspecified Qualified Code(s): R55 - Syncope and collapse
[2024-10-07] MEDS ORDERED: methylPREDNISolone 125 MG/2 ML VIAL IV SCH (08:00)
[2024-10-07] MEDS: predniSONE 20 MG TAB PO SCH (08:16)
[2024-10-07] MEDS: AZITHROMYCIN 250 MG TAB PO SCH (08:16)
[2024-10-07] MEDS: lamoTRIgine 100 MG TAB PO SCH (08:17)
[2024-10-07] MEDS: MELOXICAM 7.5 MG TAB PO SCH (08:17)
[2024-10-07] MEDS: ENOXAPARIN INJ 40 MG/0.4 ML SYR SQ SCH (08:17)
[2024-10-07 08:38] LABS: Calcium 9.4 mg/dl (8.6-10.3); Creatinine Clr Calc Pharmacy 72.3 ml/min; Magnesium 2.2 mg/dl (1.7-2.4); Potassium 4.1 mmol/L (3.5-5.1)
[2024-10-07] MEDS ORDERED: methylPREDNISolone 40 MG in SYRINGE 0 ML IV SCH (09:00)
[2024-10-07] MEDS ORDERED: PNEUMOCOCCAL VACCINE (PCV20) 20-VAL CONJ-DIP CRM/PF 0.5 ML SYR IM ONE (09:00)
[2024-10-07 09:20] LABS: Echinocytes 1+; Eosinophils # (auto) 0.03 K/uL (0.00-0.50); Eosinophils % (auto) 0.4 %; Hematocrit (blood only) 35.2 % (42.0-52.0); Hemoglobin 13.2 g/dl (14.0-18.0); Immature Granulocytes # (auto) 0.06 K/uL (0.01-0.20); Immature Granulocytes % (auto) 0.7 %; Lymphocytes # (auto) 0.57 K/uL (1.20-3.40); Lymphocytes % (auto) 6.8 %; Mean Corpuscular Hemoglobin 33.6 pg (25.0-34.0); Mean Corpuscular Hgb Conc 37.5 g/dL (32.0-36.0); Mean Corpuscular Volume 89.6 fL (80.0-100.0); Mean Platelet Volume 9.8 fL (9.4-12.4); Monocytes # (auto) 0.29 K/uL (0.11-0.59); Monocytes % (auto) 3.4 %; Neutrophils # (auto) 7.49 K/uL (1.40-6.50); Neutrophils % (auto) 88.7 %; Platelet Count 189 K/uL (130-400); Polychromasia 1+; RDW Coefficient of Variation 13.1 % (11.5-14.5); RDW Standard Deviation 43.5 fL (36.4-46.3); Red Blood Count 3.93 M/uL (4.70-6.10); Toxic Vacuolation 2+; White Blood Count 8.44 K/ul (4.8-10.8)
[2024-10-07 12:47] LABS: A calco-baum cmplx NotReported Not Detected (NotDetected); Bact fragilis Not Reported Not Detected (NotDetected); Blood Culture Id Panel See PCR Comment (NotDetected); C auris Not Reported Not Detected (NotDetected); Calbicans Not Reported Not Detected (NotDetected); Candida glabrata Not Reported Not Detected (NotDetected); Candida krusei Not Reported Not Detected (NotDetected); Cneoformans/gatti Not Reported Not Detected (NotDetected); Cparapsilosis Not Reported Not Detected (NotDetected); E cloacae compx Not Reported Not Detected (NotDetected); Efaecalis Not Reported Not Detected (NotDetected); Efaecium Not Reported Not Detected (NotDetected); Enterobacterales Not Reported Not Detected (NotDetected); Escherichia coli Not Reported Not Detected (NotDetected); H influenzae Not Reported Not Detected (NotDetected); K aerogenes Not Reported Not Detected (NotDetected); Koxytoca Not Reported Not Detected (NotDetected); Kpneumoniae grp Not Reported Not Detected (NotDetected); Lmonocyt Not Reported Not Detected (NotDetected); N meningitidis Not Reported Not Detected (NotDetected); P aeruginosa Not Reported Not Detected (NotDetected); Proteus spp Not Reported Not Detected (NotDetected); Salmonella spp Not Reported Not Detected (NotDetected); Staph lugdunensis Not Reported Not Detected (NotDetected); Staph spp. Not Reported DETECTED (NotDetected); Staphaureus Not Reported Not Detected (NotDetected); Staphepi Not Reported Not Detected (NotDetected); Stenmaltophilia Not Reported Not Detected (NotDetected); Strep agal(GrpB) Not Reported Not Detected (NotDetected); Strep pneum Not Reported Not Detected (NotDetected); Strep pyog (GrpA) Not Reported Not Detected (NotDetected); Strep spp Not Reported Not Detected (NotDetected)
[2024-10-07 12:55] LABS: Staphylococcus spp. DETECTED (NotDetected)
[2024-10-07] MEDS ORDERED: VANCOMYCIN CONSULT ACTIVE PRN (13:01)
--- NOTE | 2024-10-07 13:43 | XCELERA ---
[id number] \\[id number]
[2024-10-07] MEDS: VANCOMYCIN HCL 1,500 MG in SODIUM CHLORIDE 0.9% 500 ML IV ONE (13:56)
--- NOTE | 2024-10-07 15:36 | Pharmacy Report ---
Pharmacy PK ABX Note - Date of Service October 07, 2024 - Assessment and Plan Assessment 58 year old M receiving vancomycin for treatment of bacteremia and ceftriaxone and azithromycin for the treatment of multifocal pneumonia. * Pertinent microbiologic data includes: 1 of 2 positive blood cultures growing Gram + cocci in clusters Day # 1 of antimicrobial therapy. Plan Vancomycin * Loading dose: 1500 mg IV x 1 * Maintenance dose: 1000 mg IV every 12 hours * Regimen is predicted to achieve target AUC/REBEL of 400-600 mg/L.hr * Random level will be ordered in the next 48-72 hours. Pharmacy will continue to follow and will adjust dose/frequency as necessary. Thank you. Pharmacy has transitioned to AUC monitoring for vancomycin. AUC/REBEL is the preferred PK/PD target and is associated with decreased risk of nephrotoxicity compared to traditional trough targets.
[2024-10-07] MEDS: cefTRIAXone SODIUM 2,000 MG/50 ML BAG IV SCH (17:07)
[2024-10-07] MEDS: GABAPENTIN 600 MG TAB PO SCH (20:27)
[2024-10-07] MEDS: LORazepam 1 MG TAB PO STA (21:18)
[2024-10-07] MEDS: VANCOMYCIN HCL 1,000 MG/270 ML BAG IV SCH (22:55)
[2024-10-08 02:55] VITALS: O2SAT 94
[2024-10-08] MEDS: BIKTARVY PO SCH (07:54)
[2024-10-08] MEDS ORDERED: ALBUT/IPRATROP 3MG/0.5MG NEB 3 ML VIAL NEB PRN (09:59)
[2024-10-08 11:52] VITALS: BP 116/68; RESP 16; TEMP 97.5
[2024-10-08 12:18] VITALS: PULSE 76
--- NOTE | 2024-10-08 17:56 | Discharge Summary ---
Discharge Summary Date of Service October 08, 2024 Principal Dx & Hospital Course #1 = Principal Diagnosis (1) Bilateral pneumonia: 58 y/o man with HIV well controlled on Biktarvy and COPD came in after two syncopal episodes 10/05, found to have multifocal pneumonia - L base and bilateral upper lobe infiltrates on chest CT CAP, multifocal pneumonia Acute exacerbation of COPD, mild. presumptive COPD based on chronic cough extensive smoking history, unclear formal diagnosis has had as needed albuterol inhaler in the past but not a control inhaler He improved on antibiotics, IV fluids, nebulizers and steroids. Not hypoxic, no fever or leukocytosis at this time, safe for discharge home. -continue ceftriaxone-->cefuroxime and azithromycin (500 mg daily x 3 days) -staph hominis in 1 bottle of 1/2 sets ED admission blood cultures, presumed a contaminant. TTE was done for syncope - without any obvious vegetations. Follow blood Cx results - pending. -prednisone 20 mg daily x 5 days -prescribed albuterol MDI and control inhaler for presumed COPD - Mucinex 600mg BID - Sputum culture and gram stain ordered but not submitted moderate hyponatremia - hypovolemic - normalized from 129 up to 135 with IV fluids steroid-induced hyperglycemia - BG elevated in 200s today -reduced steroids, should be ok for short course (2) Syncopal episodes: Acute, 2 episodes on 10/05. With prodrome. Caused by pneumonia / orthostasis related to infection and hypovolemia. - TTE reviewed with Dr. Tellez and unremarkable, normal LV EF 60-65% no RWMAs, mild concentric LVH, no significant valvular disease, normal volume status - CTA chest was negative for PE - Continuous cardiac monitoring- no significant arrhythmia on tele review - further workup not indicated unless recurrent syncope (3) Depression with anxiety: Chronic - Continue venlafaxine, seroquel, and lamictal - pt does note that he "took himself off" of the venlafaxine which may account for his tremulousness - continue gabapentin He appears to have myoclonic jerks - he'll reduce his gabapentin to see if it improves and will follow up with PCP (4) HIV (human immunodeficiency virus infection): Chronic, undetectable x 14 yrs - Continue Biktarvy - Repeat CD4 count was ordered at admission and still pending (5) COPD exacerbation: see above Plan Volume depletion / 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 Cr 1.26 same as 04/2024 (previously 0.9-1.2) -Cr 1.26-->1.15 after IV fluids -Cr 0.99 today, GFR 88 and CrCl 84 which would be stage 2 CKD Notes For Next Care Provider recommend trying to taper gabapentin to see if apparent myoclonic jerks improve blood cultures still pending CD4 count was sent and it is still pending Medication Changes From Visit added antibiotics, albuterol, COPD control inhaler ICS/LABA Admission HPI Per Admitting Provider Enrique is a 58 yo M with a pmhx of COPD, HIV w/ most recent CD4 count of 222, HLD, hepatitis B, HLD, PE, depression, methamphetamine use disorder, and anxiety and panic disorder who presents to the ER today following syncopal event x 2 that occurred at home yesterday. His first event occurred when he was outside sitting on his swing. He denies any recent use of substances, including methamphetamine since Apr 2024. He states that he stood up to walk into the house when he passed out. He does endorse feeling lightheaded before going down. He had a second episode while standing inside that was witnessed by his significant other with whom he lives. He reports that this occurred about 4 years ago but never had it investigated. His partner denies any visible jerking or shaking. He has no prior h/o seizures. He also endorses increased dyspnea, cough and congestion since Wednesday. He denies fever but reports chills. He had one episode of chest pain on Wednesday of last week while vaping, and no further episodes since that time. In the ER, his work up is notable for a CTA chest with early pna in the left lung base and anterior of both upper lobes. He is afebrile and not hypoxic. His HS trop was 5.8. He has a normal wbc count w/o shift. His Na is 129. He was medicated in the ER with a dose of Zithromax and Rocephin. He also received a dose of methylprednisolone 125mg IV x1 and two duonebs. He has been referred for admission to hospital medicine team. Discharge Exam PHYSICAL EXAMINATION Last 24h vital signs reviewed, see documentation in flowsheet General: comfortable appearing, no distress, thin man appears older than his age HEENT: small laceration bridge of nose not bleeding, pupils round and equal, sclerae anicteric, no conjunctival injection, moist mucus membranes Lungs: Normal respiratory effort. lung exam improved though still has scattered coarse breath sounds in all walsh and slight expiratory wheezing, frequent coughing but good air movement Heart: Regular rate and rhythm, no murmurs. No JVD Abdomen: Soft, nontender, nondistended. Bowel sounds present. Extremities: Warm, dry, well-perfused. No extremity edema. Neuro: Alert and oriented x 4, face symmetric, moves 4 extremities well, has frequent frequent jerking movements of his limbs at rest Psych: Normal affect and behavior Discharge Plan Discharge Items Patient Disposition: Home - Self-Care Reason For Visit: SYNCOPE, PNA Discharge Diagnosis: Community acquired pneumonia, COPD exacerbation, syncope Activity: Resume your previous activity Non-emergency contact: Primary Care Provider Call non-emergency contact if: you have any medication questions, your symptoms worsen and your temperature is above 101 Follow-up/Referrals: José Manuel Escoto CRNP [Primary Care Provider] - 10/16/24 10:20 am Diet: Regular Addtl Attending Provider Instructions: You were treated for pneumonia and exacerbation of COPD -take antibiotics (cefuroxime) until they run out. You finished the other antibiotic (azithromycin) while you were in the hospital -take prednisone for five more days to reduce inflammation and wheezing -use albuterol inhaler as needed for shortness of breath or wheezing - you might need this several times a day this week -you can take guaifenesin 600 mg twice a day (available over the counter as mucinex or some robitussin formulas) to help loosen up mucus -I prescribed a control inhaler for COPD - use this daily You passed out because you were sick with pneumonia, we did not find any heart problems, blood clots, or other serious causes for passing out It was a pleasure taking care of you in the hospital, Abril Willis MD Pending Studies at Discharge: No Stand-Alone Forms: My [facility] [employer], Smoking Cessation Medications and DC Order Prescriptions: New azithromycin 250 mg Tablet 500 mg PO QAM Qty: 2 0RF Rx Instructions: last dose AM of 10/08 prednisone 20 mg Tablet 20 mg PO DAILY Qty: 5 0RF cefuroxime axetil 500 mg tablet 500 mg PO BID 7 Days Qty: 14 0RF budesonide-formoterol 160-4.5 mcg/actuation HFA aerosol inhaler 1 inh inhalation BID Qty: 10.2 0RF Continued venlafaxine 150 mg capsule,extended release 24hr 150 mg PO BID 21 Days Qty: 42 0RF Rx Instructions: take at 0900 and 1300 gabapentin 800 mg tablet 800 mg PO TID Qty: 270 3RF Biktarvy 50-200-25 mg tablet 1 tab PO QAM quetiapine 300 mg tablet 300 mg PO HS lamotrigine 100 mg tablet 100 mg PO QAM meloxicam 15 mg tablet 15 mg PO QAM Discharge Orders: Discharge Order (Routine); Ordered 10/08/24 Ordered By: Abril Torrez/Other Patient Handouts: COPD Using Inhalers, ED Pneumonia (Adult) Admission Data Admit Date/Time: 10/07/24 16:46 Attending Provider: Abril Willis Admit Provider: Zachariah Fox Primary Care Provider: José Manuel Escoto Other Providers: Zachariah Fox Other Interventions: Discharge Summary Assessment (RN) Last Done: 10/08/24 12:15 Hospital Stay Data Consultations 10/06/24 17:09 ED Decision to Admit Stat Diagnostic Imagining Performed 10/06/24 14:52 CT angio chest PE protocol Stat CT head/brain wo con Stat 10/06/24 14:54 CT cervical spine wo con Stat Pending Results Patient Have Any Pending Studies at Discharge: No Discharge Instructions Given to Patient (Per Discharging Provider) You were treated for pneumonia and exacerbation of COPD -take antibiotics (cefuroxime) until they run out. You finished the other antibiotic (azithromycin) while you were in the hospital -take prednisone for five more days to reduce inflammation and wheezing -use albuterol inhaler as needed for shortness of breath or wheezing - you might need this several times a day this week -you can take guaifenesin 600 mg twice a day (available over the counter as mucinex or some robitussin formulas) to help loosen up mucus -I prescribed a control inhaler for COPD - use this daily You passed out because you were sick with pneumonia, we did not find any heart problems, blood clots, or other serious causes for passing out It was a pleasure taking care of you in the hospital, Abril Willis MD Total Time Total Time Spent Total Time Spent (In Minutes): I personally spent: 38 minutes today on clinical care activities including: reviewing chart notes and vital signs reviewing labs discussion with clinical pharmacist, bedside RN examining and counseling the patient writing orders writing prescriptions, discharge instructions documentation Coding Level of Care Code 20439 INP/OBS DISCH >30 MIN Diagnoses Pneumonia of both lungs due to infectious organism, unspecified part of lung J18.9 Pneumonia type: due to unspecified organism Lung location: unspecified part of lung Syncope, unspecified syncope type R55 Syncope type: unspecified Depression with anxiety F41.8 HIV (human immunodeficiency virus infection) B20 COPD exacerbation J44.1
[2024-10-10 17:52] LABS: LSP % Cells Analyzed CD4 17 % (30-61); LSP Absolute Ct CD4 235 cells/uL (490-1740); LSP Lymphocytes Absolute 1419 cells/uL (850-3900)
== END 2024-10-08 13:36 | disposition home or self-care (01) | DRG 194 ==
LOC: 2N 12:39 → ED 12:39 → SUATTDRO 17:26 → 2N 21:36

== ENCOUNTER 2025-06-25 16:55 | Observation (INO) ==
--- NOTE | 2025-06-25 17:54 | Emergency Department Note ---
History of Present Illness General Chief complaint: Arm Pain Stated complaint: PAIN + NUMBNESS LT HAND/ARM/SHOULDER SINCE SAT Time Seen by Provider: 06/25/25 17:35 History of Present Illness Maximum Pain Intensity: 8 This is a 59-year-old male that presents to the emergency department via private vehicle with complaints of "left upper back pain, neck pain, head pain". The patient said Wednesday morning he began with pain in the back of the left side of the head, left neck and left upper back area. Pain between his shoulder blades as well. He also notes chest pain/shortness of breath. He is right-hand dominant. He does note an ache throughout the entire left arm. No fevers or chills. No preceding illness or current illness. Patient denies any known drug allergies. Current pain 04/08. Home Medications Medication Instructions Recorded Confirmed Type bictegravir 50 mg-emtricitabine 1 tab PO QAM 03/30/23 06/26/25 History 200 mg-tenofovir alafenam 25 mg tablet (Biktarvy) gabapentin 800 mg tablet 800 mg PO TID #270 tabs 09/25/24 06/26/25 Rx lamotrigine 100 mg tablet 100 mg PO QAM 10/06/24 06/26/25 History meloxicam 15 mg tablet 15 mg PO QAM 10/06/24 06/26/25 History quetiapine 300 mg tablet 300 mg PO HS 10/06/24 06/26/25 History prednisone 20 mg tablet 20 mg PO DAILY #5 tabs 10/07/24 06/26/25 Rx fluticasone propionate 50 1 spray intranasal DAILY #16 grams 03/21/25 06/26/25 Rx mcg/actuation nasal spray,suspension rosuvastatin 10 mg tablet 10 mg PO HS #90 tabs 03/26/25 06/26/25 Rx albuterol sulfate 90 mcg/actuation 2 puff inhalation QID PRN 06/13/25 06/26/25 Rx aerosol inhaler shortness of breath or wheezing #8.5 grams Allergies Allergy/AdvReac Type Severity Reaction Status Date / Time No Known Drug Allergies Allergy Verified 10/20/24 10:59 Past Med/Surg History Problem List (Updated 06/26/25 @ 05:23 by José Harley MD) Neck pain Chest pain (Acute) Upper back pain on left side (Acute) Shingles (Acute) Left cervical radiculopathy (Acute) Syncope (Acute) COPD exacerbation Low testosterone History of colon polyps Nocturnal enuresis Erectile dysfunction Umbilical hernia Panic disorder Depression with anxiety Hepatitis B Cigarette nicotine dependence Cannabis abuse, daily use medical marijuana daily 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 Left knee pain History of pulmonary embolism Approximately 2009 (r/t IV drug use) Joint pain COPD (chronic obstructive pulmonary disease) does not use inhaler Hyperlipidemia HIV (human immunodeficiency virus infection) (Acute) "undetectable for 14 years" Medical History History of drug use sober since 10/2022 for all drugs except IV drugs; last use of IV drugs 2021 Arthritis Medical cannabis use "all day every day" Hepatitis B Depression with anxiety Panic disorder History of DVT (deep vein thrombosis) Approximately 2009 Surgical History H/O umbilical hernia repair (04/08/23) Open Umbilical Hernia Repair(Not Applicable) - José Manuel Edwards DO History of colonoscopy H/O tooth extraction all teeth removed Family History Other No family history of adverse response to anesthesia Denies family history of Ovarian cancer Prostate cancer Myocardial infarction Breast cancer Colorectal cancer Social History Smoking Status: Current every day smoker Tobacco Type: Cigarettes Age Started Using Tobacco: 16; packs per day: 0.5; Cigarettes Per Day: 1 pack per day; Second Hand Exposure: Yes; Do You Dip or Chew Tobacco: No; Tobacco Cessation Education Requested by Patient: No Hx Alcohol Use: Yes Alcohol type: beer and hard liquor Hx Substance Use: Yes Prescribed Medications: Marijuana Last Used Substance: Unknown Last Used Substance Other:: Sober since 10/2022; IV drugs-2021. Substance Use Type Other:: Quit Methamphetamine in 2017. Current Marijuana user. Preferred Language: Upper Sorbian Communication Ability: Effective Visual Impairment: Limited Hearing Ability: Normal Health Commissioner Required: No Beliefs That Will Affect Care: None marital status: Current Living Situation: Significant Other Current Living Situation Comment: lives with GF current occupational status: disabled Other Information That Helps Us Care for You: No Feels Safe at Home: Yes Safety Concerns: Feels Safe At This Time Childhood Exposure to Second-Hand Smoke: Yes Diet: regular Diet Comment: regular caffeine: Yes (coffeee) during the past year weight has: remained stable Dental Care, Regularly: Yes Physical Activity Frequency: Daily Seatbelt Use: always Sunscreen Use: Yes Gender Identity: Male Assistive Devices: None Review of Systems A total of 10 systems reviewed and were otherwise negative Physical Exam Vital Signs Vital Signs - 24 hr 06/25/25 18:45 06/25/25 20:12 06/25/25 22:00 Pulse Rate 77 66 Pulse Rate [Apical] 65 Pulse Rhythm [Apical] Regular Respiratory Rate 12 21 15 Respiratory Effort / Characteristics Non-Labored Spontaneous Respiratory Depth Normal Respiratory Pattern Regular Blood Pressure 122/79 Blood Pressure [Left Arm] 117/74 Blood Pressure Mean 93 Blood Pressure Mean [Left Arm] 88 Pulse Oximetry 94 98 95 Oxygen Delivery Method Room Air 06/25/25 22:09 06/25/25 23:59 Pulse Rate 68 Pulse Rate [Apical] 62 Pulse Rhythm [Apical] Respiratory Rate 17 Respiratory Effort / Characteristics Non-Labored Respiratory Depth Normal Respiratory Pattern Regular Blood Pressure Blood Pressure [Left Arm] 159/90 H Blood Pressure Mean Blood Pressure Mean [Left Arm] 113 Pulse Oximetry 95 Oxygen Delivery Method Room Air VITAL SIGNS - Vital signs and nursing notes were reviewed. Stable and afebrile. GENERAL -59-year-old male appearing his stated age who is in no acute distress. Communicates well with provider and answers questions appropriately. SKIN - Without rashes. No meningeal or petechial rash. The integument overlying the left upper back, neck and head areas unremarkable to inspection HEAD - NC/AT. EYES - PERRL with EOMI bilaterally. Sclera anicteric. EARS - No deformities of external structures noted on gross examination bilaterally. External auditory canals without discharge or otorrhea. Tympanic membranes pearly platt without retraction or bulging. No fluid or purulent material visualized behind the TM. Handle of malleus, umbo, cone of light, pars tensa/flaccid all easily visualized. NOSE - Midline and without cyanosis. No epistaxis or purulent drainage noted. Septum midline without deviation or septal hematoma noted. MOUTH/OROPHARYNX - Without perioral cyanosis. Buccal mucosa pink and moist and without leukoplakia. Tongue midline with equal elevation of palate bilaterally. No tonsillar hypertrophy, erythema, or exudates noted. Fair dentition noted. NECK - Neck with FROM. Supple to palpation. No lymphadenopathy noted. No nuchal rigidity. Reproducible tenderness through the paraspinous musculature of the C- spine on the left side tracking throughout the left superior trapezius muscle. LUNGS - Chest wall symmetric without accessory muscle use, intercostals retractions, or central cyanosis. Normal vesicular breath sounds CTA B/L. No wheezes, rales, or rhonchi appreciated. CARDIAC - RRR EXTREMITIES - No clubbing or peripheral cyanosis. +5/5 strength noted in UE/LE bilaterally. NEUROLOGIC - Cranial nerves II through XII grossly intact. 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 Bilateral biceps reflexes within normal limits. Tenderness overlying the musculature of the left upper back area. Sensory intact to light touch throughout. PSYCH -alert, oriented and pleasant on exam Course Administered Medications Gabapentin (Gabapentin 800 Mg Tab) 800 mg PO TID [facility] Stop: 07/26/25 08:59 Last Admin: 06/26/25 13:10 Dose: 800 mg Documented By: Admin: 06/26/25 09:01 Dose: 800 mg Documented By: HALEIGH Hydromorphone HCl (Hydromorphone Inj 0.5 Mg/0.5 Ml Syr) 0.25 mg IV Q3H PRN PRN Reason: Pain severe Stop: 07/10/25 02:57 Last Admin: 06/26/25 16:22 Dose: 0.25 mg Documented By: Admin: 06/26/25 13:10 Dose: 0.25 mg Documented By: Admin: 06/26/25 09:00 Dose: 0.25 mg Documented By: Admin: 06/26/25 03:14 Dose: 0.25 mg Documented By: YOAV Meloxicam (Meloxicam 7.5 Mg Tab) 15 mg PO QAM [facility] Stop: 07/26/25 08:59 Last Admin: 06/26/25 09:01 Dose: 15 mg Documented By: HALEIGH Pregabalin (Pregabalin 100 Mg Cap) 100 mg PO TID [facility] Stop: 07/26/25 13:59 Last Admin: 06/26/25 13:10 Dose: 100 mg Documented By: HALEIGH Valacyclovir HCl (Valacyclovir Hcl 500 Mg Tablet) 500 mg PO TID [facility] Stop: 07/03/25 08:59 Last Admin: 06/26/25 13:11 Dose: 500 mg Documented By: Admin: 06/26/25 09:01 Dose: 500 mg Documented By: HALEIGH Discontinued Medications Hydromorphone HCl (Hydromorphone Inj 0.5 Mg/0.5 Ml Syr) 0.5 mg IV NOW STA Stop: 06/25/25 17:52 Last Admin: 06/25/25 18:26 Dose: 0.5 mg Documented By: DRE Hydromorphone HCl (Hydromorphone Inj 0.5 Mg/0.5 Ml Syr) 0.5 mg IV NOW STA Stop: 06/25/25 20:08 Last Admin: 06/25/25 20:11 Dose: 0.5 mg Documented By: COLEEN Hydromorphone HCl (Hydromorphone Inj 0.5 Mg/0.5 Ml Syr) 0.25 mg IV NOW STA Stop: 06/25/25 22:23 Last Admin: 06/25/25 22:29 Dose: 0.25 mg Documented By: DENIS Ioversol (Optiray 320 125ml) 115 ml IV ONCE ONE Stop: 06/25/25 19:32 Last Admin: 06/25/25 19:32 Dose: 115 ml Documented By: GELA Lidocaine (Lidocaine 5% 1 Patch) 1 patch TD NOW STA Stop: 06/25/25 17:52 Last Admin: 06/25/25 18:28 Dose: 1 patch Documented By: DRE Miscellaneous (Remove Lidoderm Patch) 1 each N/A DAILY@2100 [facility] Stop: 07/25/25 20:59 Last Admin: 06/25/25 20:06 Dose: Not Given Documented By: DENIS Miscellaneous (Biktarvy--Order Awaiting Action) 1 each N/A QS [facility] Stop: 07/26/25 07:59 Last Admin: 06/26/25 09:01 Dose: Not Given Documented By: HALEIGH Ondansetron HCl (Ondansetron Inj 2 Mg/Ml 2 Ml Vial) 4 mg IV NOW STA Stop: 06/25/25 17:52 Last Admin: 06/25/25 18:26 Dose: 4 mg Documented By: CEF Valacyclovir HCl (Valacyclovir Hcl 500 Mg Tablet) 1,000 mg PO NOW ONE Stop: 06/25/25 21:00 Last Admin: 06/25/25 21:38 Dose: 1,000 mg Documented By: COLEEN Medical Decision Making Laboratory Data 06/25/25 18:41 06/25/25 18:41 Lab Results 06/25/25 06/25/25 Range/Units 18:41 19:20 WBC 4.54 L (4.8-10.8) K/ul RBC 4.01 L (4.70-6.10) M/uL Hgb 13.4 L (14.0-18.0) g/dl POC Hgb 13.3 L (14.0-18.0) g/dl Hct 36.6 L (42.0-52.0) % POC Hct 39 L (42-52) % MCV 91.3 (80.0-100.0) fL MCH 33.4 (25.0-34.0) pg MCHC 36.6 H (32.0-36.0) g/dL RDW Std Deviation 46.1 (36.4-46.3) fL RDW Coeff of Lia 13.5 (11.5-14.5) % Plt Count 249 (130-400) K/uL MPV 9.1 L (9.4-12.4) fL Immature Gran % (Auto) 0.0 % Neut % (Auto) 30.9 % Lymph % (Auto) 43.6 % Garza % (Auto) 18.5 % Eos % (Auto) 5.7 % Baso % (Auto) 1.3 % Neut # (Auto) 1.40 (1.40-6.50) K/uL Lymph # (Auto) 1.98 (1.20-3.40) K/uL Garza # (Auto) 0.84 H (0.11-0.59) K/uL Eos # (Auto) 0.26 (0.00-0.50) K/uL Baso # (Auto) 0.06 (0.00-0.20) K/uL Immature Gran # (Auto) 0.00 L (0.01-0.20) K/uL PT 10.5 (9.0-12.0) Seconds INR 1.0 (0.9-1.1) APTT 27 (21-31) Seconds PTT Ratio 1.0 POC Sodium 140 (135-144) mmol/L Sodium 136 (136-145) mmol/L POC Potassium 4.0 (3.3-5.0) mmol/L Potassium 4.0 (3.5-5.1) mmol/L POC Chloride 104 (101-112) mmol/L Chloride 107 (98-107) mmol/L Carbon Dioxide 24 (21-32) mmol/L POC Total CO2 24 (24-31) mmol/L Anion Gap 5 (3-11) POC Anion Gap 16.0 (16-25) mmol/L POC BUN 11 (7-18) mg/dl BUN 13 (6-23) mg/dl Creatinine 1.19 (0.6-1.4) mg/dl POC Creatinine 1.3 (0.6-1.3) mg/dl Est Cr Clr Drug Dosing 69.0 ml/min eGFR 70.37 BUN/Creatinine Ratio 10.9 (10-20) Glucose 100 H (70-99(Fasting)) mg/dl POC Glucose (other) 95 (70-99) mg/dl Calcium 9.3 (8.6-10.3) mg/dl POC Ioniz Calcium Nanel 1.22 (1.12-1.32) mmol/l Magnesium 2.1 (1.7-2.4) mg/dl Total Bilirubin 0.2 (0.2-1.0) mg/dl AST 15 (13-39) U/L ALT 11 (7-52) U/L Alkaline Phosphatase 63 (34-104) U/L Troponin I High Sens 4.1 (0-20) pg/ml Total Protein 7.1 (6.0-8.3) gm/dl Albumin 4.1 (3.4-5.0) gm/dl Globulin 3.0 (2.5-4.0) gm/dl Albumin/Globulin Ratio 1.4 (0.9-2) Imaging Data Radiologist's Impression: Chest CTA 06/25/25 17:51 Exam(s): CTA CHEST IV Amt: 115cc opti 320 EXAM: CT Angiography Chest With Intravenous Contrast CLINICAL HISTORY: Reason for exam: L sided neck, head, upper back pain. TECHNIQUE: Axial computed tomographic angiography images of the chest with intravenous contrast. CTDI is 47 mGy and DLP is 1371 mGy-cm. Automated exposure control was utilized for the study. A dose lowering technique was utilized adhering to the principles of ALARA. MIP reconstructed images were created and reviewed. COMPARISON: No relevant prior studies available. FINDINGS: Pulmonary arteries: Unremarkable. No pulmonary embolism. Aorta: Mild atheromatous plaque involving in the undersurface of the aortic arch without hemodynamically significant stenosis or ulceration. No thoracic aortic aneurysm. Lungs: Unremarkable. No mass. No consolidation. Pleural space: Unremarkable. No significant effusion. No pneumothorax. Heart: Unremarkable. No cardiomegaly. No significant pericardial effusion. No evidence of RV dysfunction. Bones/joints: No acute fracture. No dislocation. Soft tissues: Unremarkable. Lymph nodes: Unremarkable. No enlarged lymph nodes. IMPRESSION: No acute findings in the visualized arteries of the chest. Electronically signed by: Rico Yadav MD 06/25/25 20:33 PM Head CTA 06/25/25 17:51 Exam(s): CTA HEAD W/WO Contrast IV Amt: 115cc opti 320 EXAM: CT Angiography Head Without and With Intravenous Contrast CLINICAL HISTORY: Reason for exam: L sided neck, head, upper back pain. TECHNIQUE: Axial computed tomographic angiography images of the head without and with intravenous contrast. CTDI is 47 mGy and DLP is 1371 mGy-cm. Automated exposure control was utilized for the study. A dose lowering technique was utilized adhering to the principles of ALARA. MIP reconstructed images were created and reviewed. CONTRAST: Patient received 115cc opti 320 of IV contrast COMPARISON: No relevant prior studies available. FINDINGS: VASCULATURE: Right internal carotid artery: No acute findings. Intracranial segment is patent with no significant stenosis. No aneurysm. Right anterior cerebral artery: Unremarkable. No occlusion or significant stenosis. No aneurysm. Right middle cerebral artery: Unremarkable. No occlusion or significant stenosis. No aneurysm. Right posterior cerebral artery: Unremarkable. No occlusion or significant stenosis. No aneurysm. Right vertebral artery: Unremarkable as visualized. Left internal carotid artery: No acute findings. Intracranial segment is patent with no significant stenosis. No aneurysm. Left anterior cerebral artery: Unremarkable. No occlusion or significant stenosis. No aneurysm. Left middle cerebral artery: Unremarkable. No occlusion or significant stenosis. No aneurysm. Left posterior cerebral artery: Unremarkable. No occlusion or significant stenosis. No aneurysm. Left vertebral artery: Unremarkable as visualized. Basilar artery: Unremarkable. No occlusion or significant stenosis. No aneurysm. HEAD: Brain: No acute findings. No hemorrhage. No edema. Normal enhancement. Ventricles: Unremarkable. No ventriculomegaly. Bones/joints: No acute fracture. Soft tissues: Unremarkable. Sinuses: Unremarkable as visualized. No acute sinusitis. Mastoid air cells: Unremarkable as visualized. No mastoid effusion. IMPRESSION: Normal head CTA. Electronically signed by: Rico Yadav MD 06/25/25 20:37 PM Neck CTA 06/25/25 17:51 Exam(s): CTA NECK With Contrast IV Amt: 115cc opti 320 EXAM: CT Angiography Neck With Intravenous Contrast CLINICAL HISTORY: Reason for exam: L sided neck, head, upper back pain. TECHNIQUE: Routine carotid CT angiography protocol was performed with intravenous contrast. NASCET criteria using the distal ICAs for comparison were used for evaluation of stenoses. CTDI is 47 mGy and DLP is 1371 mGy-cm. Automated exposure control was utilized for the study. A dose lowering technique was utilized adhering to the principles of ALARA. MIP reconstructed images were created and reviewed. CONTRAST: Patient received 115cc opti 320 of IV contrast COMPARISON: None. FINDINGS: VASCULATURE: Right common carotid artery: Unremarkable. No occlusion or significant stenosis. No dissection. Right internal carotid artery: Unremarkable. Extracranial segment is patent with no occlusion or significant stenosis. No dissection. Right external carotid artery: Unremarkable. No occlusion. Right vertebral artery: Unremarkable. No occlusion or significant stenosis. No dissection. Left common carotid artery: Unremarkable. No occlusion or significant stenosis. No dissection. Left internal carotid artery: Unremarkable. Extracranial segment is patent with no occlusion or significant stenosis. No dissection. Left external carotid artery: Unremarkable. No occlusion. Left vertebral artery: The left vertebral artery also becomes diminutive after gives rise to the left PICA but remains patent along its entire course. No occlusion or significant stenosis. No dissection. Aorta: Incidental note is made of the left vertebral artery arising as a separate vessel from the aortic arch. NECK: Bones/joints: Unremarkable. No acute fracture. Soft tissues: Unremarkable. Lung apices: Clear. CAROTID STENOSIS REFERENCE USING NASCET CRITERIA: % ICA stenosis = (1 - narrowest ICA diameter/diameter of distal cervical ICA) x 100. Mild - <50% stenosis. Moderate - 50-69% stenosis. Severe - 70-94% stenosis. Near occlusion - 95-99% stenosis. Occluded - 100% stenosis. IMPRESSION: No acute findings in the arteries of the neck. Electronically signed by: Rico Yadav MD 06/25/25 20:35 PM MDM Narrative Patient was seen and evaluated as above in room D01b. Review was performed of triage nursing notes and vital signs. I did review pertinent previous visits and patient history. After obtaining a thorough history and physical examination the above work up was performed. Patient presents to us today for evaluation of the above symptoms. He has pain from the left occipital region of the head extending down to the left side of the neck and left arm area. [id number] brought to my attention that upon getting the patient into again on there was a left forearm rash. Patient notes he just now noticed this when he took his clothes off to put the gown on. On my exam there are vesicular clusters to the left ventral forearm area concerning for zoster. Labs reveal pancytopenia. Coags normal. No evidence of kidney or liver failure. Glucose normal. Troponin within normal range making ACS less likely. EKG per my interpretation reveals normal sinus rhythm at a rate of 70 bpm. QTc 414. QRS 92. No ST elevation on this rhythm tracing. Left anterior fascicular block noted. CTA of the head neck and chest was performed. Results as above. These were essentially negative for acute process. The patient symptoms are likely related to that of cervical radiculopathy but also may also be secondary to dermatomal distribution with the zoster. I did review benefit versus risk of antivirals with the patient and did check the patient's current medication regimen and the clinical pharmacology interaction body design checker versus antivirals such as valacyclovir. I reviewed the findings with the patient. It is felt that the benefit outweighed risk. Oral valacyclovir was ordered. Patient while here was medicated with multiple doses of IV analgesia. He was also given antiemetics intravenously. Lidocaine patch was also added. With the patient having the ongoing pain, challenging to mitigate with IV analgesia here, chest pain with the symptoms, as well and with the zoster in the setting of HIVI did consider further evaluation and management in the inpatient setting. I discussed options with the patient. Will proceed with plan for admission. Case discussed with the hospitalist service. MRI of the cervical spine was added. Please refer to further documentation regarding his stay. GCS: 15 In the evaluation and treatment of this patient the following differential diagnoses were entertained: Zoster, cervical radiculopathy, CVA, TIA, dissection, MA, among others Impression & Plan Left cervical radiculopathy, Shingles, Upper back pain on left side, Chest pain Discharge Plan Visit Data Chief Complaint: Arm Pain Stated Complaint: PAIN + NUMBNESS LT HAND/ARM/SHOULDER SINCE SAT ED Provider: Alphonse [facility] ED Midlevel Provider: Yuri Rodriges Discharge Problem: Left cervical radiculopathy, Shingles, Upper back pain on left side, Chest pain Patient Disposition: Admitted As Inpatient Condition: Good Discharge Instructions Interventions: ED Discharge Assessment Last Done: 06/26/25 01:50 Addendum June 26, 2025 18:31 I was consulted by the Advanced Practice Provider and was substantively involved in the patient's visit.This includes aspects of the HPI, MDM, diagnostic interpretations, and disposition/plan. I discussed the case with the ULISSES and agree with the findings and plan as documented in ULISSES Zahira's note.
[2025-06-25] MEDS: ONDANSETRON INJ 2 MG/ML 2 ML VIAL IV STA (18:26)
[2025-06-25] MEDS: HYDROmorphone INJ 0.5 MG/0.5 ML SYR IV STA ×3 (18:26→22:29)
[2025-06-25] MEDS: LIDOCAINE 5% 1 PATCH TD STA (18:28)
[2025-06-25 19:05] LABS: Hematocrit (blood only) 36.6 % (42.0-52.0); Hemoglobin 13.4 g/dl (14.0-18.0); Immature Granulocytes # (auto) 0.00 K/uL (0.01-0.20); Immature Granulocytes % (auto) 0.0 %; Mean Corpuscular Hemoglobin 33.4 pg (25.0-34.0); Mean Corpuscular Volume 91.3 fL (80.0-100.0); Platelet Count 249 K/uL (130-400); RDW Standard Deviation 46.1 fL (36.4-46.3); Red Blood Count 4.01 M/uL (4.70-6.10); White Blood Count 4.54 K/ul (4.8-10.8)
[2025-06-25 19:28] LABS: Alanine Aminotransferase 11.0 U/L (7-52); Albumin Globulin Ratio 1.4 (0.9-2); Albumin Level 4.1 gm/dl (3.4-5.0); Alkaline Phosphatase 63.0 U/L (34-104); Anion Gap 5.0 (3-11); Bilirubin,Total 0.2 mg/dl (0.2-1.0); Blood Urea Nitrogen 13.0 mg/dl (6-23); Calcium 9.3 mg/dl (8.6-10.3); Carbon Dioxide 24.0 mmol/L (21-32); Chloride 107.0 mmol/L (98-107); Creatinine Clr Calc Pharmacy 69.0 ml/min; Globulin 3.0 gm/dl (2.5-4.0); Glucose 100.0 mg/dl (70-99(Fasting)); Magnesium 2.1 mg/dl (1.7-2.4); Potassium 4.0 mmol/L (3.5-5.1); Sodium 136.0 mmol/L (136-145); Total Protein 7.1 gm/dl (6.0-8.3)
[2025-06-25] MEDS: OPTIRAY 320 125ml IV ONE (19:32)
[2025-06-25 19:43] LABS: INR 1.0 (0.9-1.1); Partial Thromboplastin Time 27 Seconds (21-31); Prothrombin Time 10.5 Seconds (9.0-12.0)
[2025-06-25] MEDS: REMOVE LIDODERM PATCH SCH (20:06)
--- NOTE | 2025-06-25 20:34 | CT Scan Report ---
Exam(s): CTA CHEST IV Amt: 115cc opti 320 EXAM: CT Angiography Chest With Intravenous Contrast CLINICAL HISTORY: Reason for exam: L sided neck, head, upper back pain. TECHNIQUE: Axial computed tomographic angiography images of the chest with intravenous contrast. CTDI is 47 mGy and DLP is 1371 mGy-cm. Automated exposure control was utilized for the study. A dose lowering technique was utilized adhering to the principles of ALARA. MIP reconstructed images were created and reviewed. COMPARISON: No relevant prior studies available. FINDINGS: Pulmonary arteries: Unremarkable. No pulmonary embolism. Aorta: Mild atheromatous plaque involving in the undersurface of the aortic arch without hemodynamically significant stenosis or ulceration. No thoracic aortic aneurysm. Lungs: Unremarkable. No mass. No consolidation. Pleural space: Unremarkable. No significant effusion. No pneumothorax. Heart: Unremarkable. No cardiomegaly. No significant pericardial effusion. No evidence of RV dysfunction. Bones/joints: No acute fracture. No dislocation. Soft tissues: Unremarkable. Lymph nodes: Unremarkable. No enlarged lymph nodes. IMPRESSION: No acute findings in the visualized arteries of the chest. Electronically signed by: Rico Yadav MD 06/25/25 20:33 PM
--- NOTE | 2025-06-25 20:35 | CT Scan Report ---
Exam(s): CTA NECK With Contrast IV Amt: 115cc opti 320 EXAM: CT Angiography Neck With Intravenous Contrast CLINICAL HISTORY: Reason for exam: L sided neck, head, upper back pain. TECHNIQUE: Routine carotid CT angiography protocol was performed with intravenous contrast. NASCET criteria using the distal ICAs for comparison were used for evaluation of stenoses. CTDI is 47 mGy and DLP is 1371 mGy-cm. Automated exposure control was utilized for the study. A dose lowering technique was utilized adhering to the principles of ALARA. MIP reconstructed images were created and reviewed. CONTRAST: Patient received 115cc opti 320 of IV contrast COMPARISON: None. FINDINGS: VASCULATURE: Right common carotid artery: Unremarkable. No occlusion or significant stenosis. No dissection. Right internal carotid artery: Unremarkable. Extracranial segment is patent with no occlusion or significant stenosis. No dissection. Right external carotid artery: Unremarkable. No occlusion. Right vertebral artery: Unremarkable. No occlusion or significant stenosis. No dissection. Left common carotid artery: Unremarkable. No occlusion or significant stenosis. No dissection. Left internal carotid artery: Unremarkable. Extracranial segment is patent with no occlusion or significant stenosis. No dissection. Left external carotid artery: Unremarkable. No occlusion. Left vertebral artery: The left vertebral artery also becomes diminutive after gives rise to the left PICA but remains patent along its entire course. No occlusion or significant stenosis. No dissection. Aorta: Incidental note is made of the left vertebral artery arising as a separate vessel from the aortic arch. NECK: Bones/joints: Unremarkable. No acute fracture. Soft tissues: Unremarkable. Lung apices: Clear. CAROTID STENOSIS REFERENCE USING NASCET CRITERIA: % ICA stenosis = (1 - narrowest ICA diameter/diameter of distal cervical ICA) x 100. Mild - <50% stenosis. Moderate - 50-69% stenosis. Severe - 70-94% stenosis. Near occlusion - 95-99% stenosis. Occluded - 100% stenosis. IMPRESSION: No acute findings in the arteries of the neck. Electronically signed by: Rico Yadav MD 06/25/25 20:35 PM
--- NOTE | 2025-06-25 20:38 | CT Scan Report ---
Exam(s): CTA HEAD W/WO Contrast IV Amt: 115cc opti 320 EXAM: CT Angiography Head Without and With Intravenous Contrast CLINICAL HISTORY: Reason for exam: L sided neck, head, upper back pain. TECHNIQUE: Axial computed tomographic angiography images of the head without and with intravenous contrast. CTDI is 47 mGy and DLP is 1371 mGy-cm. Automated exposure control was utilized for the study. A dose lowering technique was utilized adhering to the principles of ALARA. MIP reconstructed images were created and reviewed. CONTRAST: Patient received 115cc opti 320 of IV contrast COMPARISON: No relevant prior studies available. FINDINGS: VASCULATURE: Right internal carotid artery: No acute findings. Intracranial segment is patent with no significant stenosis. No aneurysm. Right anterior cerebral artery: Unremarkable. No occlusion or significant stenosis. No aneurysm. Right middle cerebral artery: Unremarkable. No occlusion or significant stenosis. No aneurysm. Right posterior cerebral artery: Unremarkable. No occlusion or significant stenosis. No aneurysm. Right vertebral artery: Unremarkable as visualized. Left internal carotid artery: No acute findings. Intracranial segment is patent with no significant stenosis. No aneurysm. Left anterior cerebral artery: Unremarkable. No occlusion or significant stenosis. No aneurysm. Left middle cerebral artery: Unremarkable. No occlusion or significant stenosis. No aneurysm. Left posterior cerebral artery: Unremarkable. No occlusion or significant stenosis. No aneurysm. Left vertebral artery: Unremarkable as visualized. Basilar artery: Unremarkable. No occlusion or significant stenosis. No aneurysm. HEAD: Brain: No acute findings. No hemorrhage. No edema. Normal enhancement. Ventricles: Unremarkable. No ventriculomegaly. Bones/joints: No acute fracture. Soft tissues: Unremarkable. Sinuses: Unremarkable as visualized. No acute sinusitis. Mastoid air cells: Unremarkable as visualized. No mastoid effusion. IMPRESSION: Normal head CTA. Electronically signed by: Rico Yadav MD 06/25/25 20:37 PM
--- NOTE | 2025-06-26 00:48 | History & Physical Report ---
Date of Service June 26, 2025 Assessment & Plan (1) Left cervical radiculopathy: (2) Neck pain: (3) Shingles: (4) HIV (human immunodeficiency virus infection): Plan The patient is a 59-year-old male with past medical history including COPD, low testosterone, nocturnal enuresis, panic disorder, depression with anxiety, hepatitis B, history of amphetamine and Cannabis abuse, history of PE, hyperlipidemia, and HIV on Biktarvy. He presents to the emergency department with left upper back, neck and back of his head pain, and reports also some intrascapular pain. He is noted to have a rash on his left arm, which is consistent with shingles. Workup in the emergency department included the following imaging: CTA head negative, CTA neck negative, CTA chest negative for PE. From the ED the patient received the following: Lidoderm patch, Dilaudid 0.5 mg IV x 2, Zofran 4 mg IV, and Valtrex 1000 mg orally x 1. [facility]. Shingles left upper extremity/neck pain/left arm radiculopathy- CTA head and neck negative CTA chest PE protocol negative MRI cervical spine shows a disc bulge and uncovertebral hypertrophy at C5-C6 causing mild bilateral neuroforaminal narrowing, more so on the left side, abutting the left exiting nerve root. Therefore, the pain in the left upper extremity may be a combination of shingles and combination of nerve impingement from cervical spine, although nerve impin gement does not appear to be as significant as well expected. Will treat the shingles, and if pain persist, then pursue further evaluation with specially for left upper extremity radiculopathy. Continue gabapentin and meloxicam. Dilaudid 0.25 mg IV every 3 hours as needed moderate to severe pain Continue Valtrex HIV- Continue Biktarvy Hyperlipidemia- Continue rosuvastatin Depression with anxiety- Continue quetiapine at bedtime Asthma- Continue albuterol HFA as needed History of Present Illness Chief Complaint: The patient presents to the emergency department with complaint of left upper back, neck and head pain since 2 days ago. Emergency department said he reported chest pain shortness of breath, however, he does not report that to me. He noted a rash on his left arm as well. Primary Care Provider: [facility] The patient is a 59-year-old male with past medical history including COPD, low testosterone, nocturnal enuresis, panic disorder, depression with anxiety, hepatitis B, history of amphetamine and Cannabis abuse, history of PE, hyperlipidemia, and HIV on Biktarvy. He presents to the emergency department with left upper back, neck and back of his head pain, and reports also some intrascapular pain. He is noted to have a rash on his left arm, which is consistent with shingles. Workup in the emergency department included the following imaging: CTA head negative, CTA neck negative, CTA chest negative for PE. From the ED the patient received the following: Lidoderm patch, Dilaudid 0.5 mg IV x 2, Zofran 4 mg IV, and Valtrex 1000 mg orally x 1. [facility] Allergies Allergy/AdvReac Type Severity Reaction Status Date / Time No Known Drug Allergies Allergy Verified 10/20/24 10:59 Home Medications Medication Instructions Recorded Confirmed Type bictegravir 50 mg-emtricitabine 1 tab PO QAM 03/30/23 06/26/25 History 200 mg-tenofovir alafenam 25 mg tablet (Biktarvy) gabapentin 800 mg tablet 800 mg PO TID #270 tabs 09/25/24 06/26/25 Rx lamotrigine 100 mg tablet 100 mg PO QAM 10/06/24 06/26/25 History meloxicam 15 mg tablet 15 mg PO QAM 10/06/24 06/26/25 History quetiapine 300 mg tablet 300 mg PO HS 10/06/24 06/26/25 History prednisone 20 mg tablet 20 mg PO DAILY #5 tabs 10/07/24 06/26/25 Rx fluticasone propionate 50 1 spray intranasal DAILY #16 grams 03/21/25 06/26/25 Rx mcg/actuation nasal spray,suspension rosuvastatin 10 mg tablet 10 mg PO HS #90 tabs 03/26/25 06/26/25 Rx albuterol sulfate 90 mcg/actuation 2 puff inhalation QID PRN 06/13/25 06/26/25 Rx aerosol inhaler shortness of breath or wheezing #8.5 grams Past Med/Surg History Problem List (Updated 06/26/25 @ 05:23 by José Harley MD) Neck pain Chest pain (Acute) Upper back pain on left side (Acute) Shingles (Acute) Left cervical radiculopathy (Acute) Syncope (Acute) COPD exacerbation Low testosterone History of colon polyps Nocturnal enuresis Erectile dysfunction Umbilical hernia Panic disorder Depression with anxiety Hepatitis B Cigarette nicotine dependence Cannabis abuse, daily use medical marijuana daily 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 Left knee pain History of pulmonary embolism Approximately 2009 (r/t IV drug use) Joint pain COPD (chronic obstructive pulmonary disease) does not use inhaler Hyperlipidemia HIV (human immunodeficiency virus infection) (Acute) "undetectable for 14 years" Medical History History of drug use sober since 10/2022 for all drugs except IV drugs; last use of IV drugs 2021 Arthritis Medical cannabis use "all day every day" Hepatitis B Depression with anxiety Panic disorder History of DVT (deep vein thrombosis) Approximately 2009 Surgical History H/O umbilical hernia repair (04/08/23) Open Umbilical Hernia Repair(Not Applicable) - José Manuel Edwards DO History of colonoscopy H/O tooth extraction all teeth removed Family History Other No family history of adverse response to anesthesia Denies family history of Ovarian cancer Prostate cancer Myocardial infarction Breast cancer Colorectal cancer Social History Smoking Status: Current every day smoker Tobacco Type: Cigarettes Age Started Using Tobacco: 16; packs per day: 0.5; Cigarettes Per Day: 1 pack per day; Second Hand Exposure: Yes; Do You Dip or Chew Tobacco: No; Hx Alcohol Use: Yes Alcohol type: beer and hard liquor Hx Substance Use: Yes Prescribed Medications: Marijuana Last Used Substance: Unknown Last Used Substance Other:: Sober since 10/2022; IV drugs-2021. Substance Use Type Other:: Quit Methamphetamine in 2017. Current Marijuana user. Preferred Language: Kiswahili Communication Ability: Effective Visual Impairment: Limited Hearing Ability: Normal [employer] Required: No Beliefs That Will Affect Care: None marital status: Current Living Situation: Significant Other Current Living Situation Comment: lives with GF current occupational status: disabled Feels Safe at Home: Yes Childhood Exposure to Second-Hand Smoke: Yes Diet: regular Diet Comment: regular caffeine: Yes (coffeee) during the past year weight has: remained stable Dental Care, Regularly: Yes Physical Activity Frequency: Daily Seatbelt Use: always Sunscreen Use: Yes Gender Identity: Male Assistive Devices: Denture - Upper, Denture - Lower, Glasses and Hospital Bed Review of Systems Review of Systems: The patient denies chest pain, palpitations, shortness of breath, dyspnea on exertion, cough, lower extremity swelling, sore throat, fevers, chills, sweats, nausea, vomiting, diarrhea , constipation, abdominal pain, pelvic pain, blood in urine or stool, dysuria, urinary frequency or urgency, lightheadedness, dizziness, memory loss, loss of consciousness, abnormal bruising or bleeding, imbalance, focal or generalized weakness, numbness or tingling in right arm) or bilateral legs, generalized arthralgias or myalgias, back or neck pain, or night sweats. The review of systems is otherwise negative other than for that already noted above, and at least 10 systems have been reviewed. Physical Exam Physical Exam: The patient is awake, alert and oriented 3, well developed and well nourished, normocephalic and atraumatic, lying in bed and in no acute distress. HEENT--PERRL, EOMI, mucous membranes and oropharynx normal Neck--supple. No JVD. No bruits. Thyroid normal, trachea midline, no adenopathy. Heart--normal S1 and S2. No murmurs, rubs or gallops. Lungs--clear bilaterally, no respiratory distress, no accessory muscle use. Abdomen--normal bowel sounds and soft. Nontender. Nondistended, no hernias or masses, no organomegaly. Extremities--no cyanosis or clubbing. No edema. There are good distal pulses b/l. Dermatologic--faint vesicular rash left arm Neurologic--cranial nerves II through XII grossly intact. Rheumatologic--normal range of motion. Psychiatric--normal affect. Results & Data Results & Data Vital Signs (Past 12 Hours) Vital Signs Temp Pulse Pulse Resp BP BP Pulse Ox 06/25/25 22:09 68 06/25/25 22:00 66 15 122/79 95 06/25/25 20:12 65 21 117/74 98 06/25/25 18:45 77 12 94 06/25/25 18:19 71 06/25/25 17:21 37 C 79 18 128/82 97 O2 Del Method 06/25/25 22:09 06/25/25 22:00 06/25/25 20:12 Room Air 06/25/25 18:45 06/25/25 18:19 06/25/25 17:21 Room Air Laboratory Results Laboratory Results WBC 4.54 K/ul (4.8-10.8) L 06/25/25 18:41 RBC 4.01 M/uL (4.70-6.10) L 06/25/25 18:41 Hgb 13.4 g/dl (14.0-18.0) L 06/25/25 18:41 POC Hgb 13.3 g/dl (14.0-18.0) L 06/25/25 19:20 Hct 36.6 % (42.0-52.0) L 06/25/25 18:41 POC Hct 39 % (42-52) L 06/25/25 19:20 MCV 91.3 fL (80.0-100.0) 06/25/25 18:41 MCH 33.4 pg (25.0-34.0) 06/25/25 18:41 MCHC 36.6 g/dL (32.0-36.0) H 06/25/25 18:41 RDW Std Deviation 46.1 fL (36.4-46.3) 06/25/25 18:41 RDW Coeff of Lia 13.5 % (11.5-14.5) 06/25/25 18:41 Plt Count 249 K/uL (130-400) 06/25/25 18:41 MPV 9.1 fL (9.4-12.4) L 06/25/25 18:41 Immature Gran % (Auto) 0.0 % 06/25/25 18:41 Neut % (Auto) 30.9 % 06/25/25 18:41 Lymph % (Auto) 43.6 % 06/25/25 18:41 [place] % (Auto) 18.5 % 06/25/25 18:41 Eos % (Auto) 5.7 % 06/25/25 18:41 Baso % (Auto) 1.3 % 06/25/25 18:41 Neut # (Auto) 1.40 K/uL (1.40-6.50) 06/25/25 18:41 Lymph # (Auto) 1.98 K/uL (1.20-3.40) 06/25/25 18:41 [place] # (Auto) 0.84 K/uL (0.11-0.59) H 06/25/25 18:41 Eos # (Auto) 0.26 K/uL (0.00-0.50) 06/25/25 18:41 Baso # (Auto) 0.06 K/uL (0.00-0.20) 06/25/25 18:41 Immature Gran # (Auto) 0.00 K/uL (0.01-0.20) L 06/25/25 18:41 PT 10.5 Seconds (9.0-12.0) 06/25/25 18:41 INR 1.0 (0.9-1.1) 06/25/25 18:41 APTT 27 Seconds (21-31) 06/25/25 18:41 PTT Ratio 1.0 06/25/25 18:41 POC Sodium 140 mmol/L (135-144) 06/25/25 19:20 Sodium 136 mmol/L (136-145) 06/25/25 18:41 POC Potassium 4.0 mmol/L (3.3-5.0) 06/25/25 19:20 Potassium 4.0 mmol/L (3.5-5.1) 06/25/25 18:41 POC Chloride 104 mmol/L (101-112) 06/25/25 19:20 Chloride 107 mmol/L (98-107) 06/25/25 18:41 Carbon Dioxide 24 mmol/L (21-32) 06/25/25 18:41 POC Total CO2 24 mmol/L (24-31) 06/25/25 19:20 Anion Gap 5 (3-11) 06/25/25 18:41 POC Anion Gap 16.0 mmol/L (16-25) 06/25/25 19:20 POC BUN 11 mg/dl (7-18) 06/25/25 19:20 BUN 13 mg/dl (6-23) 06/25/25 18:41 Creatinine 1.19 mg/dl (0.6-1.4) 06/25/25 18:41 POC Creatinine 1.3 mg/dl (0.6-1.3) 06/25/25 19:20 Est Cr Clr Drug Dosing 69.0 ml/min 06/25/25 18:41 eGFR 70.37 06/25/25 18:41 BUN/Creatinine Ratio 10.9 (10-20) 06/25/25 18:41 Glucose 100 mg/dl (70-99(Fasting)) H 06/25/25 18:41 POC Glucose (other) 95 mg/dl (70-99) 06/25/25 19:20 Calcium 9.3 mg/dl (8.6-10.3) 06/25/25 18:41 POC Ioniz Calcium Annel 1.22 mmol/l (1.12-1.32) 06/25/25 19:20 Magnesium 2.1 mg/dl (1.7-2.4) 06/25/25 18:41 Total Bilirubin 0.2 mg/dl (0.2-1.0) 06/25/25 18:41 AST 15 U/L (13-39) 06/25/25 18:41 ALT 11 U/L (7-52) 06/25/25 18:41 Alkaline Phosphatase 63 U/L (34-104) 06/25/25 18:41 Troponin I High Sens 4.1 pg/ml (0-20) 06/25/25 18:41 Total Protein 7.1 gm/dl (6.0-8.3) 06/25/25 18:41 Albumin 4.1 gm/dl (3.4-5.0) 06/25/25 18:41 Globulin 3.0 gm/dl (2.5-4.0) 06/25/25 18:41 Albumin/Globulin Ratio 1.4 (0.9-2) 06/25/25 18:41 Impressions Chest CTA 06/25/25 17:51 Exam(s): CTA CHEST IV Amt: 115cc opti 320 EXAM: CT Angiography Chest With Intravenous Contrast CLINICAL HISTORY: Reason for exam: L sided neck, head, upper back pain. TECHNIQUE: Axial computed tomographic angiography images of the chest with intravenous contrast. CTDI is 47 mGy and DLP is 1371 mGy-cm. Automated exposure control was utilized for the study. A dose lowering technique was utilized adhering to the principles of ALARA. MIP reconstructed images were created and reviewed. COMPARISON: No relevant prior studies available. FINDINGS: Pulmonary arteries: Unremarkable. No pulmonary embolism. Aorta: Mild atheromatous plaque involving in the undersurface of the aortic arch without hemodynamically significant stenosis or ulceration. No thoracic aortic aneurysm. Lungs: Unremarkable. No mass. No consolidation. Pleural space: Unremarkable. No significant effusion. No pneumothorax. Heart: Unremarkable. No cardiomegaly. No significant pericardial effusion. No evidence of RV dysfunction. Bones/joints: No acute fracture. No dislocation. Soft tissues: Unremarkable. Lymph nodes: Unremarkable. No enlarged lymph nodes. IMPRESSION: No acute findings in the visualized arteries of the chest. Electronically signed by: Rico Yadav MD 06/25/25 20:33 PM Head CTA 06/25/25 17:51 Exam(s): CTA HEAD W/WO Contrast IV Amt: 115cc opti 320 EXAM: CT Angiography Head Without and With Intravenous Contrast CLINICAL HISTORY: Reason for exam: L sided neck, head, upper back pain. TECHNIQUE: Axial computed tomographic angiography images of the head without and with intravenous contrast. CTDI is 47 mGy and DLP is 1371 mGy-cm. Automated exposure control was utilized for the study. A dose lowering technique was utilized adhering to the principles of ALARA. MIP reconstructed images were created and reviewed. CONTRAST: Patient received 115cc opti 320 of IV contrast COMPARISON: No relevant prior studies available. FINDINGS: VASCULATURE: Right internal carotid artery: No acute findings. Intracranial segment is patent with no significant stenosis. No aneurysm. Right anterior cerebral artery: Unremarkable. No occlusion or significant stenosis. No aneurysm. Right middle cerebral artery: Unremarkable. No occlusion or significant stenosis. No aneurysm. Right posterior cerebral artery: Unremarkable. No occlusion or significant stenosis. No aneurysm. Right vertebral artery: Unremarkable as visualized. Left internal carotid artery: No acute findings. Intracranial segment is patent with no significant stenosis. No aneurysm. Left anterior cerebral artery: Unremarkable. No occlusion or significant stenosis. No aneurysm. Left middle cerebral artery: Unremarkable. No occlusion or significant stenosis. No aneurysm. Left posterior cerebral artery: Unremarkable. No occlusion or significant stenosis. No aneurysm. Left vertebral artery: Unremarkable as visualized. Basilar artery: Unremarkable. No occlusion or significant stenosis. No aneurysm. HEAD: Brain: No acute findings. No hemorrhage. No edema. Normal enhancement. Ventricles: Unremarkable. No ventriculomegaly. Bones/joints: No acute fracture. Soft tissues: Unremarkable. Sinuses: Unremarkable as visualized. No acute sinusitis. Mastoid air cells: Unremarkable as visualized. No mastoid effusion. IMPRESSION: Normal head CTA. Electronically signed by: Rico Yadav MD 06/25/25 20:37 PM Neck CTA 06/25/25 17:51 Exam(s): CTA NECK With Contrast IV Amt: 115cc opti 320 EXAM: CT Angiography Neck With Intravenous Contrast CLINICAL HISTORY: Reason for exam: L sided neck, head, upper back pain. TECHNIQUE: Routine carotid CT angiography protocol was performed with intravenous contrast. NASCET criteria using the distal ICAs for comparison were used for evaluation of stenoses. CTDI is 47 mGy and DLP is 1371 mGy-cm. Automated exposure control was utilized for the study. A dose lowering technique was utilized adhering to the principles of ALARA. MIP reconstructed images were created and reviewed. CONTRAST: Patient received 115cc opti 320 of IV contrast COMPARISON: None. FINDINGS: VASCULATURE: Right common carotid artery: Unremarkable. No occlusion or significant stenosis. No dissection. Right internal carotid artery: Unremarkable. Extracranial segment is patent with no occlusion or significant stenosis. No dissection. Right external carotid artery: Unremarkable. No occlusion. Right vertebral artery: Unremarkable. No occlusion or significant stenosis. No dissection. Left common carotid artery: Unremarkable. No occlusion or significant stenosis. No dissection. Left internal carotid artery: Unremarkable. Extracranial segment is patent with no occlusion or significant stenosis. No dissection. Left external carotid artery: Unremarkable. No occlusion. Left vertebral artery: The left vertebral artery also becomes diminutive after gives rise to the left PICA but remains patent along its entire course. No occlusion or significant stenosis. No dissection. Aorta: Incidental note is made of the left vertebral artery arising as a separate vessel from the aortic arch. NECK: Bones/joints: Unremarkable. No acute fracture. Soft tissues: Unremarkable. Lung apices: Clear. CAROTID STENOSIS REFERENCE USING NASCET CRITERIA: % ICA stenosis = (1 - narrowest ICA diameter/diameter of distal cervical ICA) x 100. Mild - <50% stenosis. Moderate - 50-69% stenosis. Severe - 70-94% stenosis. Near occlusion - 95-99% stenosis. Occluded - 100% stenosis. IMPRESSION: No acute findings in the arteries of the neck. Electronically signed by: Rico Yadav MD 06/25/25 20:35 PM Cervical Spine MRI 06/25/25 22:52 EXAM: MR cervical spine wo con CLINICAL HISTORY: L sided neck pain into L arm TECHNIQUE: Multiplanar multiecho MRI sequences of the cervical spine without contrast were obtained and submitted for diagnostic interpretation. COMPARISON: None available. FINDINGS: Vertebral Alignment: Normal alignment of the cervical spine, without evidence of fracture or subluxation. Degenerative changes are present in the form of multilevel marginal osteophytes in the cervical vertebrae. Vertebral Bodies and Intervertebral Discs: Disc dehydrative changes are seen in the cervical intervertebral discs. The scanned intervertebral discs demonstrate normal heights. Normal marrow signals are seen in the scanned vertebral bodies and neural arches. [id number] analysis: C2-C3: There is no focal disc pathology, spinal canal stenosis, or neural foraminal stenosis. C3-C4: There is no focal disc pathology, spinal canal stenosis, or neural foraminal stenosis. C4-C5: There is no focal disc pathology, spinal canal stenosis, or neural foraminal stenosis. C5-C6: Mild disc bulge mildly indents the anterior thecal sac and uncovertebral hypertrophy causes mild bilateral neural foraminal narrowing, more so on the left side, abutting the left exiting nerve root. C6-C7: Mild disc bulge causing indentation on thecal sac without causing significant spinal canal stenosis or cord compression. No neural foraminal stenosis seen. C7-T1: Mild disc bulge causing indentation on thecal sac without causing significant spinal canal stenosis or cord compression. No neural foraminal stenosis seen. Spinal Cord and Nerve Roots: The spinal cord demonstrates normal signal intensity and caliber. There is no evidence of cord compression or intradural pathology. The rest of the nerve roots appear unremarkable bilaterally. No significant spinal canal stenosis. Soft Tissues: The paraspinal soft tissues appear normal without evidence of abnormal signal intensity or mass lesions. IMPRESSION: Cervical spondylosis. Disc bulge and uncovertebral hypertrophy at C5-C6 causing mild bilateral neural foraminal narrowing, more so on the left side, abutting the left exiting nerve root. Electronically signed by Haris Wyatt 06-26-2025 03:38 AM Code Status & VTE Plan Code Status Full code VTE Prophylaxis Plan VTE Prophylaxis will be ordered: Yes PG Care Time/CCT Total # of Minutes Spent Total Time Spent with Patient: Total time spent is greater than 50% in coordination of care (as documented) at patient's floor/unit and/or counseling patient: Coding Level of Care Code 46812 INT INP/OBS CARE 3/75MIN Diagnoses Left cervical radiculopathy M54.12 Neck pain M54.2 Shingles B02.9 HIV (human immunodeficiency virus infection) B20
[2025-06-26] MEDS ORDERED: ALBUTEROL HFA 8 GM INHALER INH PRN (01:09)
[2025-06-26] MEDS ORDERED: ONDANSETRON INJ 2 MG/ML 2 ML VIAL IV PRN (01:09)
[2025-06-26] MEDS ORDERED: ACETAMINOPHEN 325 MG TAB PO PRN (01:09)
[2025-06-26] MEDS: HYDROmorphone INJ 0.5 MG/0.5 ML SYR IV PRN (03:14)
--- NOTE | 2025-06-26 03:38 | Magnetic Resonance Report ---
EXAM: MR cervical spine wo con CLINICAL HISTORY: L sided neck pain into L arm TECHNIQUE: Multiplanar multiecho MRI sequences of the cervical spine without contrast were obtained and submitted for diagnostic interpretation. COMPARISON: None available. FINDINGS: Vertebral Alignment: Normal alignment of the cervical spine, without evidence of fracture or subluxation. Degenerative changes are present in the form of multilevel marginal osteophytes in the cervical vertebrae. Vertebral Bodies and Intervertebral Discs: Disc dehydrative changes are seen in the cervical intervertebral discs. The scanned intervertebral discs demonstrate normal heights. Normal marrow signals are seen in the scanned vertebral bodies and neural arches. [id number] analysis: C2-C3: There is no focal disc pathology, spinal canal stenosis, or neural foraminal stenosis. C3-C4: There is no focal disc pathology, spinal canal stenosis, or neural foraminal stenosis. C4-C5: There is no focal disc pathology, spinal canal stenosis, or neural foraminal stenosis. C5-C6: Mild disc bulge mildly indents the anterior thecal sac and uncovertebral hypertrophy causes mild bilateral neural foraminal narrowing, more so on the left side, abutting the left exiting nerve root. C6-C7: Mild disc bulge causing indentation on thecal sac without causing significant spinal canal stenosis or cord compression. No neural foraminal stenosis seen. C7-T1: Mild disc bulge causing indentation on thecal sac without causing significant spinal canal stenosis or cord compression. No neural foraminal stenosis seen. Spinal Cord and Nerve Roots: The spinal cord demonstrates normal signal intensity and caliber. There is no evidence of cord compression or intradural pathology. The rest of the nerve roots appear unremarkable bilaterally. No significant spinal canal stenosis. Soft Tissues: The paraspinal soft tissues appear normal without evidence of abnormal signal intensity or mass lesions. IMPRESSION: Cervical spondylosis. Disc bulge and uncovertebral hypertrophy at C5-C6 causing mild bilateral neural foraminal narrowing, more so on the left side, abutting the left exiting nerve root. Electronically signed by Haris Wyatt 06-26-2025 03:38 AM
[2025-06-26] MEDS: MELOXICAM 7.5 MG TAB PO SCH (09:01)
[2025-06-26] MEDS: GABAPENTIN 800 MG TAB PO SCH (09:01)
--- NOTE | 2025-06-26 11:48 | Electrocardiogram Report ---
Test Reason : Blood Pressure : */* mmHG Vent. Rate : 70 BPM Atrial Rate : 70 BPM P-R Int : 170 ms QRS Dur : 92 ms QT Int : 384 ms P-R-T Axes : 52 -46 40 degrees QTcB Int : 414 ms Normal sinus rhythm Left anterior fascicular block Abnormal ECG When compared with ECG of 06-Oct-2024 13:01, No significant change was found Confirmed by Osvaldo Bell ([id number]) on 06/26/2025 11:48:12 AM Referred By: REFERRED SELF Confirmed By: Osvaldo Bell
--- NOTE | 2025-06-26 12:28 | Hospitalist Progress Note ---
Date of Service June 26, 2025 Assessment & Plan (1) Left cervical radiculopathy: (2) Neck pain: (3) Shingles: (4) HIV (human immunodeficiency virus infection): Plan The patient is a 59-year-old male with past medical history including COPD, low testosterone, nocturnal enuresis, panic disorder, depression with anxiety, hepatitis B, history of amphetamine and Cannabis abuse, history of PE, hyperlipidemia, and HIV on Biktarvy. He presents to the emergency department with left upper back, neck and back of his head pain, and reports also some intrascapular pain. He is noted to have a rash on his left arm, which is consistent with shingles. Workup in the emergency department included the following imaging: CTA head negative, CTA neck negative, CTA chest negative for PE. From the ED the patient received the following: Lidoderm patch, Dilaudid 0.5 mg IV x 2, Zofran 4 mg IV, and Valtrex 1000 mg orally x 1. He was then referred for evaluation for admission to the [facility]. #Shingles left upper extremity/neck pain/left arm radiculopathy- CTA head and neck negative CTA chest PE protocol negative MRI cervical spine shows a disc bulge and uncovertebral hypertrophy at C5-C6 causing mild bilateral neuroforaminal narrowing, more so on the left side, abutting the left exiting nerve root. Therefore, the pain in the left upper extremity may be a combination of shingles and combination of nerve impingement from cervical spine, although nerve impi ngement does not appear to be as significant as well expected. -Continue Valtrex DC gabapentin, start Lyrica 150 mg 3 times daily - Consider Decadron versus Solu-Medrol starting tomorrow - Tylenol or Dilaudid breakthrough #HIV- Continue Biktarvy, bring in from home this morning #Hyperlipidemia- Continue rosuvastatin #Depression with anxiety- Continue quetiapine at bedtime #Asthma- Continue albuterol HFA as needed Admission and Anticipated Discharge Date Admission Date: June 26, 2025 Subjective Doing about the same today. No significant improvement in pain at baseline. The medications are helping manage of the short-term. We discussed the fact that he is already on gabapentin, consider a trial of LyricaDoing about the same today. No significant improvement in pain at baseline. The medications are. No extension of the rash. No other new or different symptoms. No new events or concerns per patient or nursing staff helping manage over the short-term. We discussed the fact that he is already on gabapentin, consider a trial of Lyrica. No extension of the rash. No other new or different symptoms. No new events or concerns per patient or nursing staff Physical Exam Physical Exam: The patient is awake, alert and oriented 3, well developed and well nourished, normocephalic and atraumatic, lying in bed and in no acute distress. HEENT--PERRL, EOMI, mucous membranes and oropharynx normal Neck--supple. No JVD. No bruits. Thyroid normal, trachea midline, no adenopathy. Heart--normal S1 and S2. No murmurs, rubs or gallops. Lungs--clear bilaterally, no respiratory distress, no accessory muscle use. Abdomen--normal bowel sounds and soft. Nontender. Nondistended, no hernias or masses, no organomegaly. Extremities--no cyanosis or clubbing. No edema. There are good distal pulses b/l. Dermatologic--faint vesicular rash left arm SKIN: Classic dermatomal dewdrop on pedal admits to nearly confluent rash over the left forearm. Neurologic--cranial nerves II through XII grossly intact. Psychiatric--normal affect. Results & Data Results & Data Vital Signs (Past 12 Hours) Vital Signs Temp Pulse Pulse Pulse Resp BP BP 06/26/25 10:37 06/26/25 07:40 36.4 C L 73 16 126/75 06/26/25 02:36 06/26/25 02:36 36.5 C 69 16 121/81 06/26/25 02:36 06/26/25 02:36 06/26/25 02:36 36.5 C 69 16 121/81 06/26/25 01:50 67 17 145/87 H 06/26/25 01:09 65 17 124/80 Pulse Ox Pulse Ox O2 Del Method O2 Del Method 06/26/25 10:37 Room Air 06/26/25 07:40 96 Room Air 06/26/25 02:36 Room Air 06/26/25 02:36 96 Room Air 06/26/25 02:36 Room Air 06/26/25 02:36 96 Room Air 06/26/25 02:36 96 Room Air 06/26/25 01:50 96 Room Air 06/26/25 01:09 95 Room Air Laboratory Results 06/25/25 06/25/25 19:20 18:41 WBC 4.54 L RBC 4.01 L Hgb 13.4 L POC Hgb 13.3 L Hct 36.6 L POC Hct 39 L MCV 91.3 MCH 33.4 MCHC 36.6 H RDW Std Deviation 46.1 RDW Coeff of Lia 13.5 Plt Count 249 MPV 9.1 L Immature Gran % (Auto) 0.0 Neut % (Auto) 30.9 Lymph % (Auto) 43.6 [place] % (Auto) 18.5 Eos % (Auto) 5.7 Baso % (Auto) 1.3 Neut # (Auto) 1.40 Lymph # (Auto) 1.98 [place] # (Auto) 0.84 H Eos # (Auto) 0.26 Baso # (Auto) 0.06 Immature Gran # (Auto) 0.00 L PT 10.5 INR 1.0 APTT 27 PTT Ratio 1.0 POC Sodium 140 Sodium 136 POC Potassium 4.0 Potassium 4.0 POC Chloride 104 Chloride 107 Carbon Dioxide 24 POC Total CO2 24 Anion Gap 5 POC Anion Gap 16.0 POC BUN 11 BUN 13 Creatinine 1.19 POC Creatinine 1.3 Est Cr Clr Drug Dosing 69.0 eGFR 70.37 BUN/Creatinine Ratio 10.9 Glucose 100 H POC Glucose (other) 95 Calcium 9.3 POC Ioniz Calcium Annel 1.22 Magnesium 2.1 Total Bilirubin 0.2 AST 15 ALT 11 Alkaline Phosphatase 63 Troponin I High Sens 4.1 Total Protein 7.1 Albumin 4.1 Globulin 3.0 Albumin/Globulin Ratio 1.4 Diagnostic Findings Cervical Spine MRI 06/25/25 22:52 EXAM: MR cervical spine wo con CLINICAL HISTORY: L sided neck pain into L arm TECHNIQUE: Multiplanar multiecho MRI sequences of the cervical spine without contrast were obtained and submitted for diagnostic interpretation. COMPARISON: None available. FINDINGS: Vertebral Alignment: Normal alignment of the cervical spine, without evidence of fracture or subluxation. Degenerative changes are present in the form of multilevel marginal osteophytes in the cervical vertebrae. Vertebral Bodies and Intervertebral Discs: Disc dehydrative changes are seen in the cervical intervertebral discs. The scanned intervertebral discs demonstrate normal heights. Normal marrow signals are seen in the scanned vertebral bodies and neural arches. [id number] analysis: C2-C3: There is no focal disc pathology, spinal canal stenosis, or neural foraminal stenosis. C3-C4: There is no focal disc pathology, spinal canal stenosis, or neural foraminal stenosis. C4-C5: There is no focal disc pathology, spinal canal stenosis, or neural foraminal stenosis. C5-C6: Mild disc bulge mildly indents the anterior thecal sac and uncovertebral hypertrophy causes mild bilateral neural foraminal narrowing, more so on the left side, abutting the left exiting nerve root. C6-C7: Mild disc bulge causing indentation on thecal sac without causing significant spinal canal stenosis or cord compression. No neural foraminal stenosis seen. C7-T1: Mild disc bulge causing indentation on thecal sac without causing significant spinal canal stenosis or cord compression. No neural foraminal stenosis seen. Spinal Cord and Nerve Roots: The spinal cord demonstrates normal signal intensity and caliber. There is no evidence of cord compression or intradural pathology. The rest of the nerve roots appear unremarkable bilaterally. No significant spinal canal stenosis. Soft Tissues: The paraspinal soft tissues appear normal without evidence of abnormal signal intensity or mass lesions. IMPRESSION: Cervical spondylosis. Disc bulge and uncovertebral hypertrophy at C5-C6 causing mild bilateral neural foraminal narrowing, more so on the left side, abutting the left exiting nerve root. Electronically signed by Haris Wyatt 06-26-2025 03:38 AM PG Care Time/CCT Total # of Minutes Spent Total Time Spent with Patient: Total time spent is greater than 50% in coordination of care (as documented) at patient's floor/unit and/or counseling patient: Coding Level of Care Code 98700 SUB INP/OBS CARE 2/35MIN Diagnoses Left cervical radiculopathy M54.12 Neck pain M54.2 Shingles B02.9 HIV (human immunodeficiency virus infection) B20
[2025-06-26] MEDS: PREGABALIN 100 MG CAP PO SCH (13:10)
[2025-06-27] MEDS: BIKTARVY PO SCH (08:06)
[2025-06-27] MEDS: DOCUSATE SODIUM/SENNA 50/8.6MG TAB PO SCH (11:34)
[2025-06-27] MEDS: POLYETHYLENE (MIRALAX) 17 GM PACK PO ONE (11:34)
--- NOTE | 2025-06-27 14:37 | Hospitalist Progress Note ---
Date of Service June 27, 2025 Assessment & Plan (1) Left cervical radiculopathy: (2) Neck pain: (3) Shingles: (4) HIV (human immunodeficiency virus infection): Plan The patient is a 59-year-old male with past medical history including COPD, low testosterone, nocturnal enuresis, panic disorder, depression with anxiety, hepatitis B, history of amphetamine and Cannabis abuse, history of PE, hyperlipidemia, and HIV on Biktarvy. He presents to the emergency department with left upper back, neck and back of his head pain, and reports also some intrascapular pain. He is noted to have a rash on his left arm, which is consistent with shingles. Workup in the emergency department included the following imaging: CTA head negative, CTA neck negative, CTA chest negative for PE. From the ED the patient received the following: Lidoderm patch, Dilaudid 0.5 mg IV x 2, Zofran 4 mg IV, and Valtrex 1000 mg orally x 1. He was then referred for evaluation for admission to the [facility] [place] [facility]. #Shingles left upper extremity/neck pain/left arm radiculopathy- CTA head and neck negative CTA chest PE protocol negative MRI cervical spine shows a disc bulge and uncovertebral hypertrophy at C5-C6 causing mild bilateral neuroforaminal narrowing, more so on the left side, abutting the left exiting nerve root. Therefore, the pain in the left upper extremity may be a combination of shingles and combination of nerve impingement from cervical spine, although nerve impi ngement does not appear to be as significant as well expected. - Continue Valtrex - Continue Lyrica 100 mg 3 times daily - Consider Decadron versus Solu-Medrol, will defer at this time given underlying psychiatric medications and risk of increased immunosuppression - switch to oral oxycodone #HIV- Continue Biktarvy, bring in from home this morning #Hyperlipidemia- Continue rosuvastatin #Depression with anxiety- Continue quetiapine at bedtime #Asthma- Continue albuterol HFA as needed Admission and Anticipated Discharge Date Admission Date: June 26, 2025 Subjective Doing okay this morning, no significant improvement in pain. Tolerating Lyrica. Unsure at this point whether it has been better or decided to gabapentin. We discussed transitioning to an alternate medicine in preparation for discharge. Otherwise he has had a notable decrease in bowel function but overall no abdominal bloating or discomfort. Appetite is still good. Physical Exam Physical Exam: The patient is awake, alert and oriented 3, well developed and well nourished, normocephalic and atraumatic, lying in bed and in no acute distress. HEENT--PERRL, EOMI, mucous membranes and oropharynx normal Neck--supple. No JVD. No bruits. Thyroid normal, trachea midline, no adenopathy. Heart--normal S1 and S2. No murmurs, rubs or gallops. Lungs--clear bilaterally, no respiratory distress, no accessory muscle use. Abdomen--normal bowel sounds and soft. Nontender. Nondistended, no hernias or masses, no organomegaly. Extremities--no cyanosis or clubbing. No edema. There are good distal pulses b/l. Dermatologic--faint vesicular rash left arm SKIN: Classic dermatomal dewdrop on pedal admits to nearly confluent rash over the left forearm. Neurologic--cranial nerves II through XII grossly intact. Psychiatric--normal affect. Results & Data Results & Data Vital Signs (Past 12 Hours) Vital Signs Temp Pulse Resp BP Pulse Ox Pulse Ox O2 Del Method 06/27/25 08:15 Room Air 06/27/25 08:01 36.8 C 95 H 18 144/75 H 95 Room Air 06/27/25 03:00 98 O2 Del Method 06/27/25 08:15 06/27/25 08:01 06/27/25 03:00 Room Air PG Care Time/CCT Total # of Minutes Spent Total Time Spent with Patient: Total time spent is greater than 50% in coordination of care (as documented) at patient's floor/unit and/or counseling patient: Coding Level of Care Code 39005 SUB INP/OBS CARE 2/35MIN Diagnoses Left cervical radiculopathy M54.12 Neck pain M54.2 Shingles B02.9 HIV (human immunodeficiency virus infection) B20
[2025-06-27] MEDS: INFLUENZA VACC TS2025-26(6m+)/PF (IIV3) 0.5mL Syr IM ONE (15:35)
[2025-06-27] MEDS: MELATONIN 3 MG TAB PO PRN (19:29)
[2025-06-28 07:23] VITALS: BP 136/79; PULSE 75; RESP 16; TEMP 97.3; O2SAT 92
[2025-06-28] MEDS: POLYETHYLENE (MIRALAX) 17 GM PACK PO SCH (08:36)
--- NOTE | 2025-06-28 11:34 | Discharge Summary ---
Discharge Summary Date of Service June 28, 2025 Principal Dx & Hospital Course #1 = Principal Diagnosis (1) Left cervical radiculopathy: (2) Neck pain: (3) Shingles: (4) HIV (human immunodeficiency virus infection): Plan The patient is a 59-year-old male with past medical history including COPD, low testosterone, nocturnal enuresis, panic disorder, depression with anxiety, hepatitis B, history of amphetamine and Cannabis abuse, history of PE, hyperlipidemia, and HIV on Biktarvy. He presents to the emergency department with left upper back, neck and back of his head pain, and reports also some intrascapular pain. He is noted to have a rash on his left arm, which is consistent with shingles. Workup in the emergency department included the following imaging: CTA head negative, CTA neck negative, CTA chest negative for PE. From the ED the patient received the following: Lidoderm patch, Dilaudid 0.5 mg IV x 2, Zofran 4 mg IV, and Valtrex 1000 mg orally x 1. He was then referred for evaluation for admission to the [facility]. #Shingles left upper extremity/neck pain/left arm radiculopathy- CTA head and neck negative CTA chest PE protocol negative MRI cervical spine shows a disc bulge and uncovertebral hypertrophy at C5-C6 causing mild bilateral neuroforaminal narrowing, more so on the left side, abutting the left exiting nerve root. Therefore, the pain in the left upper extremity may be a combination of shingles and combination of nerve impingement from cervical spine, although nerve impingement does not appear to be as significant as well expected. - Continue Valtrex - Continue Lyrica 100 mg 3 times daily - When hospitalized to stabilize, no new lesions x 36 hours, most lesions crusted over. Will discharge with Lyrica in place of gabapentin, Valtrex for additional 7 days, close follow-up with primary clinic. - Discharged with a short course of oxycodone for breakthrough pain. Advised to follow-up in the primary clinic in 3 days for ongoing pain management #HIV- Continue Biktarvy, no regimen changes made from his hospitalization #Hyperlipidemia- Continue rosuvastatin #Depression with anxiety- Continue quetiapine at bedtime #Asthma- Continue albuterol HFA as needed Admission HPI Per Admitting Provider The patient is a 59-year-old male with past medical history including COPD, low testosterone, nocturnal enuresis, panic disorder, depression with anxiety, hepatitis B, history of amphetamine and Cannabis abuse, history of PE, hyperlipidemia, and HIV on Biktarvy. He presents to the emergency department with left upper back, neck and back of his head pain, and reports also some intrascapular pain. He is noted to have a rash on his left arm, which is consistent with shingles. Workup in the emergency department included the following imaging: CTA head negative, CTA neck negative, CTA chest negative for PE. From the ED the patient received the following: Lidoderm patch, Dilaudid 0.5 mg IV x 2, Zofran 4 mg IV, and Valtrex 1000 mg orally x 1. He was then referred for evaluation for admission to the [facility] service Discharge Exam The patient is awake, alert and oriented 3, well developed and well nourished, normocephalic and atraumatic, lying in bed and in no acute distress. HEENT--PERRL, EOMI, mucous membranes and oropharynx normal Neck--supple. No JVD. No bruits. Thyroid normal, trachea midline, no adenopathy. Heart--normal S1 and S2. No murmurs, rubs or gallops. Lungs--clear bilaterally, no respiratory distress, no accessory muscle use. Abdomen--normal bowel sounds and soft. Nontender. Nondistended, no hernias or masses, no organomegaly. Extremities--no cyanosis or clubbing. No edema. There are good distal pulses b/l. Dermatologic--faint vesicular rash left arm SKIN: Classic dermatomal dewdrop on pedal admits to nearly confluent rash over the left forearm. scattered lesions on the upper arm, mostly c5 left distribution Neurologic--cranial nerves II through XII grossly intact. Psychiatric--normal affect. Discharge Plan Discharge Items Patient Disposition: Home - Self-Care Reason For Visit: SHINGLES LEFT ARM, IMMUNOCOMPROMISED Discharge Diagnosis: Herpes Zoster Neuropathic Pain Condition on Discharge: Good Goals: Shingles: - You have been provided with a prescription for Valtrex, take 1000 mg 3 times per day for at least 7 days. Lesions along your arm should be crusted over. After that has occurred and no new lesions that appear. You can stop the Valtrex - Stop the gabapentin, take the Lyrica 100 mg 3 times per day - Follow-up in the outpatient clinic for recheck and discussion of long-term pain management options if needed Activity: Resume your previous activity Non-emergency contact: Primary Care Provider Call non-emergency contact if: you have any medication questions, your pain is not controlled, your pain is worsening, your temperature is above 101 and your wound has increased redness Follow-up/Referrals: José Manuel Escoto CRNP [Primary Care Provider] - Diet: Regular Addtl Attending Provider Instructions: - Patient was asked to follow-up in the primary clinic to recheck lesions, to ensure no new ulcer forming and when it is appropriate to stop Valtrex. Also replaced gabapentin with Lyrica. Follow-up for prescription management Pending Studies at Discharge: No Stand-Alone Forms: [facility] Reppify, Smoking Cessation Medications and DC Order Prescriptions: New valacyclovir 500 mg Tablet 1,000 mg PO TID Qty: 21 0RF pregabalin [Lyrica] 100 mg Capsule 100 mg PO TID 30 Days Qty: 90 0RF oxycodone 5 mg Tablet 5 mg PO Q6H PRN (Reason: pain (scale score 7-10)) 4 Days Qty: 12 0RF Continued fluticasone propionate 50 mcg/actuation spray,suspension 1 spray intranasal DAILY Qty: 16 2RF Rx Instructions: administer into each nostril rosuvastatin 10 mg tablet 10 mg PO HS Qty: 90 3RF Rx Instructions: TAKE WITH OTC Co-Q10 100 MG NIGHTLY albuterol sulfate 90 mcg/actuation HFA aerosol inhaler 2 puff inhalation QID PRN (Reason: shortness of breath or wheezing) Qty: 8.5 1RF Biktarvy 50-200-25 mg tablet 1 tab PO QAM quetiapine 300 mg tablet 300 mg PO HS lamotrigine 100 mg tablet 100 mg PO QAM meloxicam 15 mg tablet 15 mg PO QAM Discontinued gabapentin 800 mg tablet 800 mg PO TID Qty: 270 3RF prednisone 20 mg Tablet 20 mg PO DAILY Qty: 5 0RF Discharge Orders: Discharge Order (Routine); Ordered 06/28/25 Ordered By: Justo Torrez/Other Patient Handouts: Shingles (Herpes Zoster) Admission Data Admit Date/Time: 06/26/25 00:47 Attending Provider: Justo Aly Admit Provider: José Harley Primary Care Provider: José Manuel Escoto Other Providers: José Harley Hospital Stay Data Consultations 06/25/25 20:59 ED Decision to Admit Stat Diagnostic Imagining Performed 06/25/25 17:51 CT angio chest PE protocol Stat CT angio head wo/w Stat CT angio neck with con Stat 06/25/25 22:52 MRI Cervical [MR cervical spine wo con] Stat Pending Results Patient Have Any Pending Studies at Discharge: No Discharge Instructions Given to Patient (Per Discharging Provider) - Patient was asked to follow-up in the primary clinic to recheck lesions, to ensure no new ulcer forming and when it is appropriate to stop Valtrex. Also replaced gabapentin with Lyrica. Follow-up for prescription management Total Time Total Time Spent Total Time Spent (In Minutes): 25 minutes spent with DC planning, follow-up and prescription management Coding Level of Care Code 28848 IN/OBS DISCH 30 MIN/LESS Diagnoses Left cervical radiculopathy M54.12 Neck pain M54.2 Shingles B02.9 HIV (human immunodeficiency virus infection) B20
== END 2025-06-28 12:05 | disposition home or self-care (01) | DRG 74 ==
LOC: ED 16:55 → INTOOBSV 06-26 00:47 → SUATTDRO 06-26 00:47 → EDINP 06-26 00:47 → 3N 06-26 01:50